=== PATIENT | male | born 1945 | race Caucasian/White ===

== ENCOUNTER 2019-09-15 09:57 | Outpatient (CLI) | payer OTHER, SELFPAY ==
--- NOTE | 2019-09-16 08:35 | ONC FU_ITS ---
Dr. Green Patient Follow-Up Note Patient: Vishal Boswell Unit #: [id number]: 1945 Dicatated By: Chivo Green M.D.Date of Visit:Sep 15, 2019 Onc Med Follow-up/Prog Note Chief Complaint: Bladder cancer. 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 He had presented with hematuria. A renal ultrasound on 07/07/11 showed a 2 cm mass in the bladder. The CT scan of the abdomen and pelvis on 07/26/11 showed a 3 cm mass rom the posterior aspect of the bladder. There was no associated lymphadenopathy. On 09/18/11 cystoscopy showed large nodular tumor in the mid trigone with continuous smaller papillary tumors greater than 5 cm. He underwent a transurethral resection of the bladder tumor. Pathology showed high-grade papillary carcinoma infiltrating the muscularis propria; clinical stage at least II. He was found to be a poor surgical candidate. He had a marginal performance status, his mobility was limited by severe COPD and significant osteoarthritis. He was first seen by Dr. Saavedra on 11/02/11. A CT of the chest, abdomen, and pelvis showed no evidence of distant metastatic disease. Bone scan on 11/22/11 showed a focus within the L1 vertebral body. A CT-guided biopsy on 11/23/11 confirmed metastatic non small cell cancer, consistent with transitional carcinoma of the bladder. The palliative chemotherapy with cisplatin and gemcitabine was initiated on 11/27/11, complicated with grade 4 thrombocytopenia without bleeding and grade 4 neutropenia. Just prior to cycle 2 he was admitted with acute non-ST elevation PR, treated with medical management alone. His further chemotherapy was switched to carboplatin AUC of 4 day 1 and gemcitabine 800 mg/m2 day 1 and 8 out of 3 week cycle, complicated with grade 2 thrombocytopenia with slow recovery. His platelet radha at 43. Cycle 6 was given on 04/08/12. Following that cycle of carboplatin and half dose of gemcitabine the patient developed multilobular pneumonia. He returned with recurrent hematuria. His bone scan on 08/05/13 showed no suspicious metastatic lesions, although he had multiple findings of degenerative disease. His CT 09/11/13 showed increased and new bladder lesions. TURBT on 10/06/13 showed large muscle invasive tumor at the trigone. He had additional multiple large papillary tumors scattered throughout the bladder. The tumors were fulgurated. The patient began on salvage radiation therapy with weekly carboplatin AUC 1.5 on 11/11/2013-12/19/13. He was able to receive 4 doses, last delivered on 12/02/2013, his platelet radha at 65,000, hemoglobin radha at 7.7 mg/dL, that recovered without transfusions. Follow up CT of the chest and abdomen on 01/27/2014 showed an increase in the bladder mass. He had no evidence of distant metastatic disease. His bone scan on 01/27/2014 remained negative for metastatic disease. CT 06/29/14 with irregular bladder wall, but no evidence of distant disease by CT and bone scan. CT of the chest, abdomen, and pelvis and restaging bone scan on 01/04/2015 showed no evidence of active disease. He continued observation/expectant management. His restaging CT scans of the chest, abdomen, and pelvis on 01/02/2017 showed bilateral iliac chain lymphadenopathy which had increased from the study in September. Also noted was significant enlargement of the soft tissue masses along the right iliac chain, the largest measuring 4.1 x 3.1 cm. There was additional adenopathy along the left iliac chain, the largest measuring 1.9 cm. He had further evaluation with PET/CT on 02/02/2017. Findings in the thorax were limited to 2 small right upper lobe pulmonary nodules, one measuring 6 mm and the other 5 mm, and neither were FDG avid. The abdomen and pelvis showed a large, confluent right presacral lymph node mass invading the right psoas muscle. It measured 5.6 x 4.2 x 6.6 cm with maximum SUV 20.7. A large, and left iliac lymph node was noted to abut the left psoas muscle measured 2 x 2 0.2 cm with maximum SUV 13.6. There was additional left presacral and right internal iliac adenopathy. The urinary bladder demonstrated expected excreted activity with a small posterior lateral left urinary diverticulum noted. He began second line systemic therapy with pembrolizumab, cycle 1 on 02/19/2017. He experienced some treatment related toxicity. He indicated that he was really sick and that he couldn't keep anything down for several days. His treatment was then put on hold while he underwent palliative radiation to the pelvis. His treatment was completed on 03/23/2017 to a total dose of 3120 cGy. He tolerated it well. He was then able to proceed with a second cycle of treatment on 03/27/2017. He was able to tolerate it better with a more aggressive anti-emetic regimen, and he then continued treatment at 3-week intervals. He completed cycle 6 on 06/19/2017. Restaging CT scans on 06/19/2017 showed no evidence of disease progression in the chest. Right upper lobe solid and groundglass nodules appeared unchanged. The abdomen/pelvis showed resolved left and decreased right iliac chain lymphadenopathy. There was no evidence of disease progression. He continued treatment with pembrolizumab. His cycle 7 was delayed due to flulike symptoms, but he was then able to continue his treatment at 3-week intervals. Restaging CT scans of the chest, abdomen, and pelvis on 09/26/2017 showed evidence of emphysema with stable right upper lobe pulmonary nodule measuring 6 mm. Areas of atelectasis and pleural thickening at the lung bases also appeared stable. Abdomen showed moderately well distended gallbladder with evidence of cholelithiasis but no evidence for acute cholecystitis. There was moderate fecal retention throughout the colon. There was only minimal residual soft tissue thickening along the right internal iliac chain, consistent with treated disease. The appearance was stable compared to the study from May. There was no evidence of disease progression. He continued treatment with pembrolizumab. He received cycle 13 on 12/11/2017. His medical illnesses include COPD, type II diabetes, coronary artery disease, peripheral arterial disease, GERD, degenerative arthritis, and gout. He has a history of previous stroke. He has smoked in the past, but he quit smoking 12 years ago. INTERIM HISTORY: His CT of the neck on 01/01/2018 showed an enlarged lymph node posterior to the right clavicle measuring 1.8 cm. It was new compared to the prior CT from 09/26/2017. There was no other adenopathy noted on that study. CT scans of the chest, abdomen, and pelvis on 01/02/2018 showed stable right upper lobe pulmonary nodule measuring 5 mm and is stable 13 mm right iliac chain soft tissue mass consistent with resolve/treated adenopathy. Overall there was no other evidence of disease progression. He conitinued treatment with pembrolizumab. As of 07/01/2018 he received cycle [address] scans of the chest, abdomen, and pelvis on 07/10/2018 showed no significant change in right middle lobe nodule and pleural-based densities in the lower lobes. There was no evidence of disease progression. He continued treatment with pembrolizumab at 3-week intervals. Restaging CT scans of the chest, abdomen, and pelvis on 12/25/2018 showed no evidence of new or progressed metastatic disease. He received cycle of 30 of pembrolizumab on 12/26/2018. At that point he was showing some further decline in performance status. As he was close to completing 2 years of treatment, we opted to stop the pembrolizumab and transition to observation/expectant management. His surveillance CT scans on 03/13/2019 showed stable right upper and right middle lobe pulmonary nodules and stable dependent changes at the lung bases. Overall there was no evidence for metastatic disease to the chest, abdomen, or pelvis. As of his follow-up visit on 06/12/2019 he had shown some improvement in his performance status after stopping treatment. He was recommended to continue on observation/expectant management. He is seen for a followup visit. He says he has been doing pretty well. His main complaint is that 2 weeks ago he had fallen out of his bathtub backwards, injuring his right shoulder and his back. X-rays, though, showed no evidence of fracture. The pain has been getting better. Aside from that his activity tolerance had improved somewhat, though still limited. His ECOG score is 2. He has had good appetite. His weight is up about 5 pounds. He has no fever or night sweats. He also complains, though, of generalized itching. He has not had an associated skin eruption. He had previously attributed the itching to gabapentin, but that apparently was not the cause. He has some shortness of breath, but he says his breathing is pretty good. He is mainly using oxygen just at night now. He does not complain of cough. He has just occasional chest pain. He currently has no GI complaints. His bowel and bladder function remain adequate. He has chronic neuropathy pain in his legs and feet. Medications: Aleve 220 mg - Take 1 Tablet Oral b.i.d. PRN, Aspirin 81 mg - Take 1 Tablet Oral daily, Benadryl Allergy 1 Tablet (of 25 mg) Oral b.i.d., Flonase 1 (50 mcg/act) Suspension Nasal daily, GlyBURIDE 5 mg - Take 1 Tablet Oral b.i.d., Lasix 1 (40 mg) Tablet Oral daily, Levothyroxine Sodium 1 (75 mcg) Tablet Oral daily, MetFORMIN HCl 1 (500 mg) Tablet Oral b.i.d., Metoprolol Tartrate 0.5 (100 mg) Tablet Oral b.i.d., Multivitamins 1 Capsule Oral daily, Omeprazole 1 (20 mg) Capsule Delayed Release Oral daily, Prochlorperazine Maleate 1 (10 mg) Tablet Oral q 4 hours PRN, Proventil 2 puff(s) (of 90 mcg/act) Aerosol, solution Inhalation PRN, Rosuvastatin Calcium 1 (5 mg) Tablet Oral daily, SAXagliptin HCl 1 Tablet (of 2.5 mg) Oral daily, Senna S 2 (8.6-50 mg) Tablet Oral b.i.d. PRN, Zofran 1 (8 mg) Tablet Oral q 4 hours PRN Allergies: Sulfa Review of Systems: Constitutional - He still has limited activity, but he is up and around at home. His appetite is good. His weight is up 5 lbs. No fever or night sweats. ECOG score is 2, ENMT - He has a runny nose. No mouth sores. No sore throat or difficulty swallowing, Hematologic/Lymphatic - No abnormal bruising or bleeding, Respiratory - He has some shortness of breath, but his breathing is pretty good. He is on oxygen at night. No cough. No pleuritic pain or hemoptysis, Cardiovascular - He occasionally has chest pain. No palpitations, Gastrointestinal - No nausea or vomiting. His acid reflux is managed adequately with Prilosec. He has constipation, but bowel function has been adequate with a laxative pill. He has not been aware of any blood in the stool or black stools, Genitourinary (M) - No dysuria or hematuria. No urinary frequency. No urgency or incontinence, Musculoskeletal - He has had pain in his right shoulder and in his back, but it is getting better. He has chronic pain in his legs, Integumentary - No skin complications, Neurologic - He has just very occasional headaches. No dizziness. He has numbness and tingling in his feet and hands, and he has neuropathy pain in his legs, Psychiatric - No anxiety or depression. He has difficulty sleeping. Vital Signs: Performed on Sep 15, 2019 10:01 Height - 71.00 in Weight - 200.2 lbs (HIGH) BSA - 2.11 sq.m BMI - 27.92 Temperature - 98.8 F Pulse - 67 /min Respiration - 24 /min BP - 117/62 mm(hg) O2 Sat - 93 % (LOW) Pain - 5 Physical Examination: Constitutional - He appears somewhat weak generally, Eyes - Sclerae nonicteric. Conjunctivae clear, ENMT - No lesions noted in the oral cavity, Hematologic/Lymphatic - No cervical, clavicular, or axillary adenopathy, Respiratory - Lungs sound clear with diminished air movement bilaterally, Cardiovascular - Heart tones are distant. The rhythm appears regular. There is no murmur, gallop, or rub noted, Abdomen - Soft. Liver and spleen are not enlarged. There is no abdominal mass or ascites noted. There is no inguinal adenopathy noted, Extremities - Slight edema, Neurologic - No focal neurologic deficits noted. Impression: 1. Patient with high-grade papillary carcinoma of the bladder, stage IV, initially diagnosed in August 2011. 2. His initial treatment included TURBT followed by 6 cycles of [place]/gemcitabine chemotherapy, complicated by significant thrombocytopenia and neutropenia. Restaging CT after 6 cycles of treatment in March 2012 showed no evidence of active disease. 3. CT showed local recurrence in the bladder only. TURBT was performed on 10/06/13. He received palliative concurrent chemoradiation with Carboplatin AUC 1.5, completed on 12/19/13. In the settings of recurrent hematuria, CT on 12/13/2015 revealed new retroperitoneal and pericaval lymphadenopathy. 4. He has known coronary disease, and his treatment was further complicated by non-ST elevation myocardial infarction just prior to his second cycle of chemotherapy. His other medical illnesses include: 5. COPD. 6. Type II diabetes. 7. Peripheral arterial disease. 8. History of prior stroke. 9. GERD. 10. Degenerative arthritis. 11. Gout. He has had marginal performance status following his chemotherapy and radiation. He unfortunately developed recurrence in the form of presacral and iliac lymphadenopathy bilaterally. On the right there is associated invasion of the right psoas muscle, which was symptomatic. He began second line systemic therapy with pembrolizumab, cycle 1 on 02/19/2017. He did have some acute toxicity, mainly nausea/vomiting, lasting several days. His treatment was then put on hold while he underwent palliative radiation to the pelvis. He completed treatment on 03/23/2017 to a total dose of 3120 cGy. He has had some symptomatic improvement with the radiation. He continued, though, to have very marginal performance status. He was able to proceed with cycle 2 of pembrolizumab on 03/27/2017. He tolerated it better with more aggressive anti-emetic therapy. He has since then continued treatment at 3-week intervals. As of 12/11/2017 he had completed his 13th cycle. Up to that point there had been no obvious disease progression. His CT scans from 01/02/2018 did show a new lymph node behind the right clavicle measuring 1.8 cm. The significance of that finding is uncertain. There was no other evidence of disease progression. He continued treatment with pembrolizumab, and during subsequent follow-up he had gradual improvement in his clinical status. His restaging CT scans on 07/10/2018 showed no evidence of disease progression. During subsequent follow-up, his clinical status had been fairly stable, though he continued to have very limited activity tolerance. His restaging CT scans on 12/25/2018 showed no evidence of disease progression. He then continued with cycle 30 of pembrolizumab on 12/26/2018, though he was experiencing some further decline in his performance status. He was close to completing 2 years of treatment, and at that point we opted to stop the pembrolizumab and transition to observation/expectant management. His surveillance CT scans from 03/13/2019 showed no obvious recurrence/progression of the bladder cancer. He had shown some improvement in his performance status after stopping the pembrolizumab. Since then his clinical status has remained stable, though he continues to have fairly limited activity and he also continues to complain of generalized itching. A specific cause for that has not been determined. Plan: I will obtain results of the lab studies which were [facility]. He will be scheduled for surveillance CT scans. Assuming there is no evidence of disease progression, I will just plan to see him again in 6 months. Signed By: Chivo Green M.D. <<Signature on File>>
== END 2019-09-15 09:58 | disposition home or self-care (01) ==
LOC: ONCMED 09:58
PROVIDERS: Family Provider Emergency Medicine Emergency Medical Services; PCP Emergency Medicine Emergency Medical Services; Visit Provider Internal Medicine Medical Oncology
DX: Z08 Encounter for follow-up examination after completed treatment for malignant neoplasm (principal); Z85.51 Personal history of malignant neoplasm of bladder; L29.9 Pruritus, unspecified; M19.90 Unspecified osteoarthritis, unspecified site; J43.9 Emphysema, unspecified; E11.51 Type 2 diabetes mellitus with diabetic peripheral angiopathy without gangrene; I25.10 Atherosclerotic heart disease of native coronary artery without angina pectoris; K21.9 Gastro-esophageal reflux disease without esophagitis; M10.9 Gout, unspecified; R91.8 Other nonspecific abnormal finding of lung field; I25.2 Old myocardial infarction; Z91.81 History of falling; Z79.899 Other long term (current) drug therapy; Z79.82 Long term (current) use of aspirin; Z79.84 Long term (current) use of oral hypoglycemic drugs; Z87.01 Personal history of pneumonia (recurrent); Z92.21 Personal history of antineoplastic chemotherapy; Z86.73 Personal history of transient ischemic attack (TIA), and cerebral infarction without residual deficits; Z87.891 Personal history of nicotine dependence; Z92.3 Personal history of irradiation
CPT/HCPCS: 99214

== ENCOUNTER 2019-09-24 11:52 | Outpatient (CLI) | payer OTHER, SELFPAY ==
--- NOTE | 2019-09-24 12:00 | CT_ITS ---
WS: [id number] CT CHEST AND ABDOMEN TECHNIQUE: Contrast-enhanced CT of the chest and abdomen with coronal and sagittal reformatted images . CLINICAL INFORMATION: BLADDER CANCER COMPARISON: March 13, 2019 DLP: [id number] scans at [facility] use at least one of these dose optimization techniques: automat ed exposure control; mA and/or kV adjustment per patient size (includes targeted exams where dose is matched to clinical indication); or iterative reconstruction. CT CHEST: Moderate chronic emphysematous changes. A few small subcentimeter nodules right upper and right middl e lobes the largest measuring 5 mm in the right upper lobe. No mediastinal or hilar lymphadenopathy. No acute pulmonary infiltrates. Subsegmental atelectasis in the lung bases. Thoracic aortic calcific ation. Coronary calcification. Small esophageal hiatal hernia. CT ABDOMEN: Cholelithiasis. Normal portal vein and splenic vein. Normal pancreas. Adrenal glands are normal. Sple roopa granulomas. No renal parenchymal enhancement. No hydronephrosis. Normal caliber abdominal aorta. No abdominal lymphadenopathy. Diverticulosis. No evidence of acute diverticulitis. No evidence of sma ll or large bowel obstruction. Left bladder diverticulum measuring 13 mm near the left UVJ. This is u nchanged. No pelvic or iliac chain lymphadenopathy. Moderate thoracic kyphosis. CT/CT chest abdomen w con* IMPRESSION: 1. No evidence of progressed metastatic disease in the chest abdomen or pelvis . 2. Stable right upper lobe noncalcified pulmonary nodule measuring 5 mm. 3. No adenopathy in the abdomen or pelvis. 4. Dense cholelithiasis is unchanged in appearance. 5. Small esophageal hiatal hernia. 6. Small bladder diverticulum near the left UVJ measuring 13 mm is unchanged. 7. No pelvic or inguinal lymphadenopathy.
[2019-09-24] MEDS: iohexol 300 mg/mL 50 mL Btl PO (14:01)
[2019-09-24] MEDS: iohexol 300 mg/mL 100 mL Btl IV (14:03)
== END 2019-09-24 11:53 | disposition home or self-care (01) ==
PROVIDERS: Family Provider Emergency Medicine Emergency Medical Services; PCP Emergency Medicine Emergency Medical Services; Visit Provider Internal Medicine Medical Oncology
DX: C67.9 Malignant neoplasm of bladder, unspecified (principal); K80.20 Calculus of gallbladder without cholecystitis without obstruction; K44.9 Diaphragmatic hernia without obstruction or gangrene; N32.3 Diverticulum of bladder
CPT/HCPCS: 71260; 74160; Q9967

== ENCOUNTER 2020-01-12 14:45 | Outpatient (CLI) | payer OTHER, SELFPAY ==
[2020-01-12 15:23] LABS: Add Urine Microscopic? NO
[2020-01-12 16:01] LABS: Bilirubin Urine Neg (NEGATIVE); Blood Urine Neg (Negative); Glucose Urine UA Norm (Normal); Ketones Urine Negative (Negative); Leukocyte Esterase Urine Negative (Negative); Nitrate Urine Negative (Negative); Protein Urine Neg (Negative); Specific Gravity, Urine 1.015 (1.005-1.030); Urine Appearance Clear (CLEAR); Urine Color Yellow (Yellow); Urobilinogen Urine Neg (Negative); pH Urine 5 (5-7)
== END 2020-01-12 14:46 | disposition home or self-care (01) ==
LOC: ONCMED 14:47
PROVIDERS: PCP Emergency Medicine Emergency Medical Services; Visit Provider Internal Medicine Medical Oncology
DX: R31.9 Hematuria, unspecified (principal); C67.0 Malignant neoplasm of trigone of bladder
CPT/HCPCS: 81003

== ENCOUNTER 2020-03-23 10:13 | Outpatient (CLI) | payer OTHER, SELFPAY ==
[2020-03-23 10:46] LABS: Basophils % 0.7 %; Eosinophils # 0.2 10^3/uL (0.0-0.8); Eosinophils % 5.2 %; Lymphocytes % 22.2 %; Mean Corpuscular HGB Conc 30.2 g/dL (30.0-36.0); Mean Corpuscular Volume 102.6 fL (80-94); Mean Platelet Volume 9.8 fL (7.4-10.4); Monocytes # 0.5 10^3/uL (0.2-0.9); Neutrophils # 2.71 10^3/uL (1.8-7.7); Neutrophils % 60.7 %; Nucleated Red Blood Cells % 0 %; Platelet Count 122 10^3/cmm (130-400); Red Blood Count 4.19 10^6/uL (4.1-5.3); Red Cell Distribution Width 13.6 % (12.1-15.1); White Blood Count 4.5 10^3/uL (4.0-10.0)
[2020-03-23 11:14] LABS: Alanine Aminotransferase 17 U/L (0-41); Albumin Level 4.2 g/dL (3.5-5.2); Alkaline Phosphatase 54 IU/L (40-130); Anion Gap 12.5 (5-19); Aspartate Amino Transferase 18 U/L (0-40); Blood Urea Nitrogen 24 mg/dL (8-23); Calcium 9.8 mg/dL (8.5-10.5); Carbon Dioxide 35 mmol/L (22-29); Chloride 99 mmol/L (98-107); Glucose 127 mg/dL (65-115); Osmolality Calculated 292 mOsm/kg (285-295); Potassium 4.5 mmol/L (3.5-5.1); Sodium 142 mmol/L (136-145); Thyroid Stimulating Hormone 2.39 uIU/mL (0.27-4.20); Total Bilirubin 0.2 mg/dL (0.15-1.2); Total Protein 7.2 g/dL (6.6-8.7)
== END 2020-03-23 10:14 | disposition home or self-care (01) ==
PROVIDERS: PCP Emergency Medicine Emergency Medical Services; Visit Provider Internal Medicine Medical Oncology
DX: C67.0 Malignant neoplasm of trigone of bladder (principal)
CPT/HCPCS: 36415; 80053; 84443; 85025

== ENCOUNTER 2020-03-24 06:02 | Outpatient (CLI) | payer OTHER, SELFPAY | END 2020-03-24 06:03 | disposition home or self-care (01) | LOC: ONCMED 06:03 | PROVIDERS: PCP Emergency Medicine Emergency Medical Services; Visit Provider Internal Medicine Medical Oncology | DX: Z45.2 Encounter for adjustment and management of vascular access device (principal) ==

== ENCOUNTER 2020-03-24 13:08 | Outpatient (CLI) | payer OTHER, SELFPAY | END 2020-03-24 13:09 | disposition home or self-care (01) | LOC: WOUND 13:12 | PROVIDERS: PCP Emergency Medicine Emergency Medical Services; Visit Provider Emergency Medicine | DX: L98.8 Other specified disorders of the skin and subcutaneous tissue (principal) | CPT/HCPCS: G0463 ==

== ENCOUNTER 2020-10-07 11:57 | Outpatient (CLI) | payer OTHER, SELFPAY ==
--- NOTE | 2020-10-07 12:11 | CT_ITS ---
WS: [id number] CT scan of the chest With IV contrast, CT scan of the abdomen and pelvis with IV contrast and oral contrast. Additional two-dimensional coronal and sagittal reconstruction was performed. 10/08/19 Clinical Data: BLADDER CANCER, MALIGNANT NEOPLASM OF LYMPH NODES HEAD, NECK Comparison: CT chest abdomen, 09/24/2019 DLP: 2433.[address] scans at [facility] use at least one of these dose optimization techniques: automat ed exposure control; mA and/or kV adjustment per patient size (includes targeted exams where dose is matched to clinical indication); or iterative reconstruction. Findings: Chest: No masses or effusions are seen. There is a right upper lobe nodule unchanged. The heart size is normal with no pericardial effusion. There is coronary artery calcification. There is calcification in the wall of the thoracic aorta. No pneumonia or pneumothorax is seen. There is bi basilar atelectasis and a pleural-based nodule on the posterior left inferior pleura unchanged. The pulmonary arterial system and thoracic aorta demonstrate no abnormalities or dilatations. The tra joselyn bifurcates into the bronchi. There is a small hiatal hernia There is no axillary or significant mediastinal adenopathy. The bones of the thorax showing osteoarth ritis of the thoracic vertebral bodies. Abdomen/pelvis: The liver, spleen, adrenal glands and pancreas are normal. There are gallstones unchanged. The kidneys show equal bilateral contrast excretion with a small left renal cortical cyst. No hydrone phrosis, mass or renal calculi are noted.. The abdominal aorta is normal in size with calcification and minimal mural thrombus present.. No appendicitis or diverticulitis is seen. Oral contrast is in the stomach and small bowel and there is no bowel dilatation. No abscess, ascites, mass, obstruction or free air is seen. There are numerou s retroperitoneal lymph nodes which are not enlarged and they have not changed.. The bladder shows a posterior left diverticulum unchanged.. No inguinal hernia is seen. The bones of the lower thorax, lumbar spine, pelvis, and hips and a straight osteoarthritis of the ubaldo mbar vertebral bodies with disc narrowing at L5-S1.. CT/CT chest abd pel w con* Impression: 1. Negative for acute intra-abdominal or pelvic abnormalities. 2. Unchanged right middle lobe nodule, cholelithiasis, small hiatal hernia and small bladder diverticulum.
[2020-10-07] MEDS: iohexol 300 mg/mL 50 mL Btl PO (14:24)
[2020-10-07] MEDS: iohexol 300 mg/mL 100 mL Btl IV (14:24)
== END 2020-10-07 11:58 | disposition home or self-care (01) ==
PROVIDERS: PCP Emergency Medicine Emergency Medical Services; Visit Provider Internal Medicine Medical Oncology
DX: C67.9 Malignant neoplasm of bladder, unspecified (principal); C77.8 Secondary and unspecified malignant neoplasm of lymph nodes of multiple regions; K80.20 Calculus of gallbladder without cholecystitis without obstruction; K44.9 Diaphragmatic hernia without obstruction or gangrene; N32.3 Diverticulum of bladder; R91.1 Solitary pulmonary nodule
CPT/HCPCS: 71260; 74177; Q9967

== ENCOUNTER 2020-10-14 08:54 | Outpatient (CLI) | payer OTHER, SELFPAY ==
--- NOTE | 2020-10-14 08:58 | MR_ITS ---
WS: [id number] MRI BRAIN WITHOUT CONTRAST HISTORY: MEMORY PROBLEMS COMPARISON: 04/26/2017 TECHNIQUE: Diffusion imaging, multiplanar T1, T2 and FLAIR imaging obtained. No evidence for acute infarct or hemorrhage. Richardson-white matter differentiation is normal. No prior infarcts. There is mild atrophy with mild chronic microvascular ischemic disease. Small retr ocerebellar arachnoid cyst. No hemorrhage. Ventricles and extra-axial spaces are normal. No inferior displacement of cerebellar tonsils. The sella turcica and pituitary gland are unremarkabl e. Dural venous sinuses and [place] of [place] demonstrate no abnormality on this unenhanced studies. Paranasal sinuses: Clear. Mastoid air cells: Normal. Calvarium and scalp: Intact. Moderate-sized disc osteophyte encroachment upon the cervical cord at C2-3 greatest to the LEFT of mi dline. MR/MR head wo con* [id number] IMPRESSION: 1. No acute infarct or mass. 2. Mild atrophy and chronic ischemic disease. 3. Small retrocerebellar arachnoid cyst. 4. Moderate-sized disc osteophyte encroachment upon the LEFT cervical cord at C2-3.
== END 2020-10-14 08:55 | disposition home or self-care (01) ==
PROVIDERS: PCP Emergency Medicine Emergency Medical Services; Visit Provider Emergency Medicine Emergency Medical Services
DX: R41.3 Other amnesia (principal); M25.78 Osteophyte, vertebrae; G93.0 Cerebral cysts; I67.82 Cerebral ischemia; G31.9 Degenerative disease of nervous system, unspecified
CPT/HCPCS: 70551

== ENCOUNTER 2020-10-20 08:50 | Outpatient (CLI) | payer OTHER, SELFPAY ==
--- NOTE | 2020-10-20 12:37 | ONC FU_ITS ---
Dr. Green Patient Follow-Up Note Patient: Vishal Boswell Unit #: [id number]: 1945 Dicatated By: Chivo Green M.D.Date of Visit:Oct 20, 2020 Onc Med Follow-up/Prog Note Chief Complaint: Bladder cancer. 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 He had presented with hematuria. A renal ultrasound on 07/07/11 showed a 2 cm mass in the bladder. The CT scan of the abdomen and pelvis on 07/26/11 showed a 3 cm mass rom the posterior aspect of the bladder. There was no associated lymphadenopathy. On 09/18/11 cystoscopy showed large nodular tumor in the mid trigone with continuous smaller papillary tumors greater than 5 cm. He underwent a transurethral resection of the bladder tumor. Pathology showed high-grade papillary carcinoma infiltrating the muscularis propria; clinical stage at least II. He was found to be a poor surgical candidate. He had a marginal performance status, his mobility was limited by severe COPD and significant osteoarthritis. He was first seen by Dr. Saavedra on 11/02/11. A CT of the chest, abdomen, and pelvis showed no evidence of distant metastatic disease. Bone scan on 11/22/11 showed a focus within the L1 vertebral body. A CT-guided biopsy on 11/23/11 confirmed metastatic non small cell cancer, consistent with transitional carcinoma of the bladder. The palliative chemotherapy with cisplatin and gemcitabine was initiated on 11/27/11, complicated with grade 4 thrombocytopenia without bleeding and grade 4 neutropenia. Just prior to cycle 2 he was admitted with acute non-ST elevation OK, treated with medical management alone. His further chemotherapy was switched to carboplatin AUC of 4 day 1 and gemcitabine 800 mg/m2 day 1 and 8 out of 3 week cycle, complicated with grade 2 thrombocytopenia with slow recovery. His platelet radha at 43. Cycle 6 was given on 04/08/12. Following that cycle of carboplatin and half dose of gemcitabine the patient developed multilobular pneumonia. He returned with recurrent hematuria. His bone scan on 08/05/13 showed no suspicious metastatic lesions, although he had multiple findings of degenerative disease. His CT 09/11/13 showed increased and new bladder lesions. TURBT on 10/06/13 showed large muscle invasive tumor at the trigone. He had additional multiple large papillary tumors scattered throughout the bladder. The tumors were fulgurated. The patient began on salvage radiation therapy with weekly carboplatin AUC 1.5 on 11/11/2013-12/19/13. He was able to receive 4 doses, last delivered on 12/02/2013, his platelet radha at 65,000, hemoglobin radha at 7.7 mg/dL, that recovered without transfusions. Follow up CT of the chest and abdomen on 01/27/2014 showed an increase in the bladder mass. He had no evidence of distant metastatic disease. His bone scan on 01/27/2014 remained negative for metastatic disease. He was then followed expectantly. His restaging CT scans of the chest, abdomen, and pelvis on 01/02/2017 showed bilateral iliac chain lymphadenopathy which had increased from the study in September. Also noted was significant enlargement of the soft tissue masses along the right iliac chain, the largest measuring 4.1 x 3.1 cm. There was additional adenopathy along the left iliac chain, the largest measuring 1.9 cm. He had further evaluation with PET/CT on 02/02/2017. Findings in the thorax were limited to 2 small right upper lobe pulmonary nodules, one measuring 6 mm and the other 5 mm, and neither were FDG avid. The abdomen and pelvis showed a large, confluent right presacral lymph node mass invading the right psoas muscle. It measured 5.6 x 4.2 x 6.6 cm with maximum SUV 20.7. A large, and left iliac lymph node was noted to abut the left psoas muscle measured 2 x 2 0.2 cm with maximum SUV 13.6. There was additional left presacral and right internal iliac adenopathy. The urinary bladder demonstrated expected excreted activity with a small posterior lateral left urinary diverticulum noted. He began second line systemic therapy with pembrolizumab, cycle 1 on 02/19/2017. He experienced some treatment related toxicity. He indicated that he was really sick and that he couldn't keep anything down for several days. His treatment was then put on hold while he underwent palliative radiation to the pelvis. His treatment was completed on 03/23/2017 to a total dose of 3120 cGy. He tolerated it well. He was then able to proceed with a second cycle of treatment on 03/27/2017. He was able to tolerate it better with a more aggressive anti-emetic regimen, and he then continued treatment at 3-week intervals. Restaging CT scans of the chest, abdomen, and pelvis on 12/25/2018 showed no evidence of new or progressed metastatic disease. He received cycle of 30 of pembrolizumab on 12/26/2018. At that point he was showing some further decline in performance status. As he was close to completing 2 years of treatment, I opted to stop the pembrolizumab and transition to observation/expectant management. His surveillance CT scans on 03/13/2019 showed stable right upper and right middle lobe pulmonary nodules and stable dependent changes at the lung bases. Overall there was no evidence for metastatic disease to the chest, abdomen, or pelvis. As of his follow-up visit on 06/12/2019 he had shown some improvement in his performance status after stopping treatment. He was recommended to continue on observation/expectant management. As of his follow-up visit on 09/15/2019 he was doing well clinically with no evidence of recurrence of the bladder cancer. His further follow-up here was interrupted due to the COVID-19 pandemic restrictions. However, he did continue his follow-up through the [place]. His medical illnesses include COPD, type II diabetes, coronary artery disease, peripheral arterial disease, GERD, degenerative arthritis, and gout. He has a history of previous stroke. He has smoked in the past, but he quit smoking 12 years ago. INTERIM HISTORY: His surveillance CT scans on 10/07/2020 showed unchanged right upper lobe pulmonary nodule. A pleural-based nodule in the posterior left inferior pleura appeared stable. There were no other pulmonary nodules and there was no axillary or significant mediastinal adenopathy. There was no evidence of recurrent or metastatic disease in the abdomen/pelvis. He is seen for a followup visit. He has been feeling pretty good generally. He says that his had complained that he has been sleeping a lot and forgetting things. As such, his recent evaluation also included a head MRI which also showed no evidence of metastatic disease. He still has limited activity, but he does quite a bit of walking. His ECOG score is 2. His appetite is good. He has no fever or night sweats. He has sinus drainage all the time, which is chronic. He has just occasional cough associated with chest congestion. His breathing has been okay on oxygen. He does not complain of chest pain. He colonel he has no GI complaints. Bowel function has been adequate with stool softener/laxative regimen. His bladder function has been okay. He does have some urinary frequency and nocturia, and he recently had treatment for a bladder infection. He has pain in all his joints and is neck also bothers him. He occasionally has back pain. He says he can live with it. He has occasional sinus headache. He has numbness/tingling in his feet. Medications: Aleve 220 mg - Take 1 Tablet Oral b.i.d. PRN, Aspirin 81 mg - Take 1 Tablet Oral daily, Benadryl Allergy 1 Tablet (of 25 mg) Oral b.i.d., Flonase 1 (50 mcg/act) Suspension Nasal daily, GlyBURIDE 5 mg - Take 1 Tablet Oral b.i.d., Lasix 1 (40 mg) Tablet Oral daily, Levothyroxine Sodium 1 (75 mcg) Tablet Oral daily, MetFORMIN HCl 1 (500 mg) Tablet Oral b.i.d., Metoprolol Tartrate 0.5 (100 mg) Tablet Oral b.i.d., Multivitamins 1 Capsule Oral daily, Omeprazole 1 (20 mg) Capsule Delayed Release Oral daily, Prochlorperazine Maleate 1 (10 mg) Tablet Oral q 4 hours PRN, Proventil 2 puff(s) (of 90 mcg/act) Aerosol, solution Inhalation PRN, Rosuvastatin Calcium 1 (5 mg) Tablet Oral daily, SAXagliptin HCl 1 Tablet (of 2.5 mg) Oral daily, Senna S 2 (8.6-50 mg) Tablet Oral b.i.d. PRN, Zofran 1 (8 mg) Tablet Oral q 4 hours PRN Allergies: Sulfa Vital Signs: Performed on Oct 20, 2020 09:09 Height - 71.00 in Weight - 201.4 lbs (HIGH) BSA - 2.12 sq.m BMI - 28.09 Temperature - 97.5 F (LOW) Pulse - 96 /min Respiration - 20 /min BP - 139/71 mm(hg) O2 Sat - 95 % (LOW) Pain - 0 Fatigue - 0 Physical Examination: Constitutional - He looks pretty good generally, Eyes - Sclerae nonicteric. Conjunctivae clear, ENMT - No lesions noted in the oral cavity, Hematologic/Lymphatic - No cervical, clavicular, or axillary adenopathy, Respiratory - Lungs show some decrease in air movement bilaterally. There is some slight upper airway congestion, Cardiovascular - Heart tones are distant. The rhythm appears regular. There is no murmur, gallop, or rub noted, Abdomen - Mildly distended but soft. Liver and spleen are not enlarged. There is no abdominal mass or ascites noted. There is no inguinal adenopathy noted, Extremities - Mild edema, Neurologic - No focal neurologic deficits noted. Lab/Imaging: Test performed on Sep 22, 2020 08:03 TSH 1.993 uU/mL Cholesterol, Total 179 mg/dL Glucose 110 mg/dL BUN 30 mg/dL HDL Cholesterol 31.9 mg/dL Creatinine 1.00 mg/dL LDL Cholesterol 106.9 mg/dL Cr Clearance (Est) 81.98 mL/min Triglycerides 201 mg/dL Sodium 142 mmol/L Potassium 4.0 mmol/L Chloride 94 mmol/L CO2 38 mmol/L Calcium 9.5 mg/dL Protein, Total 7.4 g/dL Albumin 4.2 g/dL Bilirubin, Total 0.4 mg/dL Alkaline Phosphatase 52 IU/L AST (SGOT) 18 IU/L ALT (SGPT) 15 IU/L HCT 45.5 % Hemoglobin A1C 5.9 % HGB 13.8 g/dL Platelet Count 142 10^9/L PSA 0.24 ng/mL Problem List: 1. High-grade papillary carcinoma of the bladder, stage IV, initially diagnosed in August 2011. 2. COPD. 3. Type II diabetes. 4. Coronary artery disease. 5. Peripheral arterial disease. 6. History of prior stroke. 7. GERD. 8. Degenerative arthritis. 9. Gout. Problems Addressed with this Encounter and Plan: Patient with high-grade papillary carcinoma of the bladder, stage IV, initially diagnosed in August 2011. His initial treatment included TURBT followed by 6 cycles of [place]/gemcitabine chemotherapy, complicated by significant thrombocytopenia and neutropenia. Restaging CT after 6 cycles of treatment in March 2012 showed no evidence of active disease. TURBT was performed on 10/06/13. CT showed local recurrence in the bladder only. He received palliative concurrent chemoradiation with carboplatin AUC 1.5, completed on 12/19/13. In the settings of recurrent hematuria, CT on 12/13/2015 revealed new retroperitoneal and pericaval lymphadenopathy. He began 2nd line systemic therapy with pembrolizumab, cycle 1 on 02/19/2017. He experienced some acute toxicity, mainly nausea/vomiting, lasting several days. His treatment was then put on hold while he underwent palliative radiation to the pelvis. He completed treatment on 03/23/2017 to a total dose of 3120 cGy. He had some symptomatic improvement with the radiation. He continued, though, to have very marginal performance status. He was able to proceed with cycle 2 of pembrolizumab on 03/27/2017. He tolerated it better with more aggressive anti-emetic therapy. He then continued treatment at 3-week intervals. During subsequent follow-up, his clinical status had been fairly stable, though he continued to have very limited activity tolerance. His restaging CT scans on 12/25/2018 showed no evidence of disease progression. He continued with cycle 30 of pembrolizumab on 12/26/2018, though he was experiencing some further decline in his performance status. As he was close to completing 2 years of treatment, I opted to stop the pembrolizumab and transition to observation/expectant management. His surveillance CT scans from 03/13/2019 showed no obvious recurrence/progression of the bladder cancer. During subsequent follow-up he remained stable clinically. As of his visit on 09/15/2019 there was no obvious progression of the bladder cancer. His further follow-up here was interrupted due to restrictions from the COVID-19 virus pandemic. [facility] At this point he continues to have limited activity tolerance, but his overall clinical status appears stable. His restaging CT scan showed no evidence of recurrence/progression of the bladder cancer. He remains on observation/expectant management. I will see him again in 6 months. Signed By: Chivo Green M.D. <<Signature on File>>
== END 2020-10-20 08:51 | disposition home or self-care (01) ==
LOC: ONCMED 08:53
PROVIDERS: PCP Emergency Medicine Emergency Medical Services; Visit Provider Internal Medicine Medical Oncology
DX: C67.0 Malignant neoplasm of trigone of bladder (principal); C79.51 Secondary malignant neoplasm of bone; C77.8 Secondary and unspecified malignant neoplasm of lymph nodes of multiple regions; D50.9 Iron deficiency anemia, unspecified; J44.9 Chronic obstructive pulmonary disease, unspecified; E11.59 Type 2 diabetes mellitus with other circulatory complications; I25.10 Atherosclerotic heart disease of native coronary artery without angina pectoris; I73.9 Peripheral vascular disease, unspecified; K21.9 Gastro-esophageal reflux disease without esophagitis; M10.9 Gout, unspecified; Z92.3 Personal history of irradiation; Z92.21 Personal history of antineoplastic chemotherapy; Z79.899 Other long term (current) drug therapy
CPT/HCPCS: 99214

== ENCOUNTER 2021-01-06 10:33 | Emergency (ER) | payer OTHER, SELFPAY ==
[2021-01-06 10:39] VITALS: BP 137/77; PULSE 88; RESP 20; TEMP 36.4; O2SAT 92; BMI 29.2
[2021-01-06 10:46] VITALS: BP 130/86; PULSE 84; RESP 18; O2SAT 94
--- NOTE | 2021-01-06 10:50 | USCV_ITS ---
Vishal Boswell Age: 75 Gender: M : 1945 Exam Date: 01/06/2021 11:18 Ordering Phys: Jaswinder Thurston Technologist: Patito Torres Exam Location: [facility] [place] Indication: SWELLING, PAIN HISTORY: Lower extremity swelling. PROCEDURES: Venous duplex imaging was performed in only the left lower extremity. The following venous structures were evaluated: common femoral vein, profunda vein, proximal portion of the greater saphenous vein, superficial femoral vein, and the popliteal vein. In addition, the posterior tibial and peroneal trunk were evaluated. FINDINGS: Normal 2-D Doppler and augmentation and compressibility throughout the lower extremity venous structures. Additional imaging through the proximal calf veins also reveals no thrombus. Limited evaluation of the greater saphenous vein is patent with no thrombus.. CONCLUSIONS No evidence of left lower extremity DVT. Satya Lackey MD (Electronically Signed) Final Date: 06 January 2021 12:18 S
--- NOTE | 2021-01-06 10:53 | W.ED.EXTPRO ---
HPI - Extremity Problem General: Chief complaint: Extremity Problem,Nontraumatic Stated complaint: POSS BLOOD CLOT IN R LEG Time Seen by Provider: 01/06/21 10:47 History of Present Illness: HPI Narrative: [facility] extremity [facility]ulitis open wounds. Those wounds have healed up. But leg is swelled more became more red and now is painful concern is for DVT. MD Complaint: extremity swelling Onset (ago): day(s) Pain Consistency: constant Location: right and lower extremity Severity scale (1-10): 5 Quality: aching Exacerbating factors: range of motion and weight bearing Associated symptoms: Reports no associated symptoms; Deny chest pain, fever(s) or rash Review of Systems Const: Denies: fever(s), chills or body aches Eyes: Denies: change in vision or blurry vision ENMT: Denies: throat pain or nasal congestion Card: Denies: chest pain or dyspnea on exertion Resp: Denies: dyspnea, productive cough or non-productive cough GI: Denies: abdominal pain, nausea or vomiting : Denies: difficulty urinating Musc: Reports: extremity pain (Left lower extremity pain and swelling redness x2 days) Skin/Breast: Denies: rash Neuro: Denies: headache(s) Psych: Denies: anxiety or depression Macario/Lymph: Denies: easy bruising [facility] ED PFSH: Medical History (Updated 01/06/21 @ 11:20 by SALAZAR Yañez) COPD (chronic obstructive pulmonary disease) Diabetes mellitus Neuropathy Family History Other Cancer Diabetes Social History Smoking and tobacco status: former smoker Alcohol intake: never Household members: spouse Marital status: Current occupational status: retired Physical Exam Const: COMMON NORMALS: no acute distress, average body habitus and patient oriented x3 HENMT: COMMON NORMALS: normocephalic HEAD & SCALP: normal to inspection and normocephalic FACE & SINUS: normal facial exam Eye: COMMON NORMALS: conjunctivae normal GENERAL EYE: appearance normal, both eyes and all related structures CONJUNCTIVA: Yes conjunctivae normal Neck/C-Spine: COMMON NORMALS: no JVD Chest: COMMONS NORMALS: normal inspection of the chest Resp: COMMON NORMALS: normal respiratory effort and clear to auscultation bilaterally AUSCULTATION: clear to auscultation bilaterally Cardio: COMMON NORMALS: no JVD, regular rate and regular rhythm RATE: regular rate RHYTHM: regular rhythm GI: COMMON NORMALS: Normal to inspection, nondistended, normoactive bowel sounds present Extremity: COMMON NORMALS: full ROM LEFT LOWER EXTREMITY: Yes lower leg (Redness from mid escobar down, positive Homans, tenderness.) Left lower leg: Yes neurovascular exam (Intact) Neuro: COMMON NORMALS: patient oriented x3 Course Vital Signs: Vital signs: Vital Signs Temperature 97.5 F L 01/06/21 10:39 Pulse Rate 87 01/06/21 11:43 Respiratory Rate 15 01/06/21 11:43 Blood Pressure 129/77 01/06/21 11:43 Pulse Oximetry 94 01/06/21 11:43 MDM - Extremity (Nontraumatic) MDM Narrative: Medical decision making narrative: Patient sent over by the [facility] for DVT exam DVT exam was negative via ultrasound. Appears that patient continues to have cellulitis which she has been on an antibiotic course x2. We will try different antibiotic will have patient follow-up with [facility]. Discharge Plan Discharge Patient Disposition: Home Clinical Impression: Cellulitis Qualifiers: Site of cellulitis: extremity Site of cellulitis of extremity: lower extremity Laterality: left Qualified Code(s): L03.116 - Cellulitis of left lower limb Condition: Stable Prescriptions: New clindamycin HCl 300 mg capsule 300 mg PO Q8H 7 Days Qty: 21 RF: 0 No Action clotrimazole [Antifungal (clotrimazole)] 1 % cream 1 applic TOPICAL BID 28 Days Qty: 45 RF: 0 metformin 1,000 mg tablet 1,000 mg PO DAILY RF: 0 Onglyza 5 mg tablet 5 mg PO DAILY RF: 0 rosuvastatin 5 mg tablet 5 mg PO DAILY RF: 0 omeprazole 20 mg capsule,delayed release(DR/EC) 20 mg PO DAILY RF: 0 levothyroxine 75 mcg capsule 75 mcg PO DAILY RF: 0 furosemide 40 mg tablet 40 mg PO DAILY RF: 0 metoprolol succinate 25 mg tablet extended release 24 hr 12.5 mg PO DAILY RF: 0 glipizide 10 mg tablet 10 mg PO DAILY RF: 0 clotrimazole 1 % cream 1 applic TOPICAL BID Qty: 30 RF: 2 Discharge Orders: Discharge ED (Routine); Ordered 01/06/21 Ordered By: Jaswinder Thurston Referrals: Ronnie Carolina DO [Primary Care Provider] - Discharge Diet: Usual diet Discharge Activity: Resume usual activity Activity Restrictions/Additional Instructions: [facility] and redness in her lower extremity. Coding Level of Care Code ED Numerical Control Machine Operator for Aleksander Fwrosanne Exam Comprehensive
[2021-01-06 11:43] VITALS: BP 129/77; PULSE 87; RESP 15; O2SAT 94
== END 2021-01-06 11:44 | disposition home or self-care (01) ==
PROVIDERS: Emergency Provider Nurse Practitioner Family; PCP Emergency Medicine Emergency Medical Services
DX: L03.116 Cellulitis of left lower limb (principal); Z79.84 Long term (current) use of oral hypoglycemic drugs; J44.9 Chronic obstructive pulmonary disease, unspecified; E11.40 Type 2 diabetes mellitus with diabetic neuropathy, unspecified; Z87.891 Personal history of nicotine dependence
CPT/HCPCS: 93971; 99282

== ENCOUNTER 2021-01-25 12:49 | Emergency (ER) | payer OTHER, MEDICARE, SELFPAY ==
[2021-01-25 13:12] VITALS: BP 127/75; PULSE 82; RESP 22; TEMP 36.7; O2SAT 93; BMI 28.7
[2021-01-25 14:17] VITALS: BP 122/62; PULSE 73; RESP 18; O2SAT 99
--- NOTE | 2021-01-25 14:34 | ED_ITS ---
HPI - General Adult General: Chief complaint: General Medical Stated complaint: S[facility] BY [facility] Time Seen by Provider: 01/25/21 13:52 Source: patient and family () Mode of arrival: wheelchair Limitations: no limitations History of Present Illness: HPI narrative: Patient with increasing redness and pain to left lower leg over the past couple weeks. Patient denies any fever. Patient states she has been on 4 rounds of antibiotics with recently getting off Levaquin 1 or 2 days ago. Patient was on Levaquin for approximately 1 week. Patient reportedly started having redness and swelling to left lower leg on December 14 after couple abrasions to his lower leg. He had negative venous Doppler of left lower leg on January 06. Patient states the redness and swelling have worsened in the past couple weeks. He denies any fever. He is type II diabetic. Patient takes aspirin but no other blood thinners. He is allergic to sulfa. He does not smoke. Onset (ago): month(s) (Since December 14) Location: lower extremity (Left lower leg and foot) Radiation: non-radiation Severity: similar to prior episodes (Mild pain) Quality: aching Pain Consistency: constant Relieving factors: none Exacerbating factors: none Associated symptoms: Reports rash; Deny chest pain, confusion, dyspnea, fevers/chills, headache(s), malaise, nausea, short of breath or vomiting Treatments prior to arrival: other (Just got off Levaquin 1 or 2 days ago.) Review of Systems Const: Denies: fever(s), chills, body aches or malaise Eyes: Denies: change in vision ENMT: Denies: throat pain Card: Reports: edema (Left lower leg greater than right lower leg); Denies: chest pain, lightheadedness or leg pain with exertion Resp: Denies: dyspnea GI: Denies: abdominal pain, nausea or vomiting : Denies: flank pain Musc: Denies: neck pain or back pain Skin/Breast: Reports: rash, erythema and dry skin Neuro: Denies: headache(s), numbness in extremities, weakness in extremities, sensory changes or confusion Psych: Denies: anxiety Macario/Lymph: Denies: enlarged lymph nodes [facility] ED PFSH: Medical History (Updated 01/25/21 @ 16:54 by Basil Reeves MD) COPD (chronic obstructive pulmonary disease) Diabetes mellitus Neuropathy Family History Other Cancer Diabetes Social History Smoking and tobacco status: former smoker Alcohol intake: never Household members: spouse Marital status: Current occupational status: retired Physical Exam Const: COMMON NORMALS: no acute distress, patient oriented x3, no limitations and well nourished EXAM LIMITATIONS: altered mental status GENERAL APPEARANCE: cooperative NUTRITIONAL APPEARANCE: obese HENMT: COMMON NORMALS: normocephalic and atraumatic HEAD & SCALP: normocephalic and atraumatic FACE & SINUS: normal facial exam Eye: COMMON NORMALS: EOMs intact bilaterally Neck/C-Spine: COMMON NORMALS: full ROM, no lymphadenopathy, supple and no meningeal signs GENERAL: Yes normal visual inspection Lymph: LYMPHATIC: no lymphadenopathy noted Chest: COMMONS NORMALS: normal inspection of the chest and normal palpation of entire chest wall CHEST: No Ecchymosis present and No rash Resp: COMMON NORMALS: normal respiratory effort, No retractions and clear to auscultation bilaterally EFFORT & INSPECTION: No respiratory distress AUSCULTATION: clear to auscultation bilaterally Cardio: COMMON NORMALS: regular rate, regular rhythm and Peripheral pulses 2+ throughout JUGULAR VENOUS DISTENTION: no JVD RATE: regular rate RHYTHM: regular rhythm PERIPHERAL PULSES: Peripheral pulses 2+ throughout GI: COMMON NORMALS: Normal to inspection, nondistended, normoactive bowel sounds present and non-tender : COMMON NORMALS: Yes no CVA tenderness BLADDER/KIDNEY EXAM: Yes no CVA tenderness Back/Pelvis: COMMON NORMALS: no CVA tenderness Extremity: COMMON NORMALS: normal to inspection, full ROM and capillary refill normal LEFT LOWER EXTREMITY: Yes lower leg (Left lower leg with erythema and cellulitis) OTHER: Left lower extremity with mild dry skin, skin is dry. No drainage or abscess. Skin is warm to touch. Peripheral pulses are normal. No clubbing or cyanosis. Patient has 1+ pitting edema of the left lower extremity. Right lower extremity does not have any edema. Right lower extremity is normal. Cellulitis on the left extends from the left foot up to upper tibia. Cellulitis is circumferential. Leg is nontender to touch. Neuro: COMMON NORMALS: patient oriented x3, CN's II-XII intact bilaterally, no focal motor deficits and no sensory deficits noted MENINGEAL SIGNS: Yes no meningeal signs Psych: COMMON NORMALS: mental status grossly normal and Normal thought process present THOUGHT PROCESS: Normal thought process present Skin: COMMON NORMALS: no wounds GENERAL SKIN EXAM: dry skin and other (Cellulitis from upper tibia down to the left foot) Course Vital Signs: Vital signs: Vital Signs Temperature 98.1 F 01/25/21 13:12 Pulse Rate 91 01/25/21 15:48 Respiratory Rate 18 01/25/21 15:48 Blood Pressure 122/62 01/25/21 15:48 Pulse Oximetry 94 01/25/21 15:48 MDM - General Adult MDM Narrative: Medical decision making narrative: Patient's venous Doppler is negative. His white blood cell count is negative. Normal differential on his CBC. I believe patient is suffering from venous stasis and likely thrombophlebitis. We will try indomethacin for the patient. Patient was given a half amp of D50 prior to discharge. Medical Records: Attestation: I reviewed the patient's medical records. Medical records narrative: Vishal Boswell Age: 75 Gender: M : 1945 Exam Date: 01/06/2021 11:18 Ordering Phys: Jaswinder Thurston Technologist: Patito Torres Exam Location: [facility] [place] Indication: SWELLING, PAIN HISTORY: Lower extremity swelling. PROCEDURES: Venous duplex imaging was performed in only the left lower extremity. The following venous structures were evaluated: common femoral vein, profunda vein, proximal portion of the greater saphenous vein, superficial femoral vein, and the popliteal vein. In addition, the posterior tibial and peroneal trunk were evaluated. FINDINGS: Normal 2-D Doppler and augmentation and compressibility throughout the lower extremity venous structures. Additional imaging through the proximal calf veins also reveals no thrombus. Limited evaluation of the greater saphenous vein is patent with no thrombus.. CONCLUSIONS No evidence of left lower extremity DVT. Satya Lackey MD (Electronically Signed) Final Date: 06 January 2021 12:18 Lab Data: Attestation: I reviewed the patient's lab results. Labs: Lab Results 01/25/21 01/25/21 Range/Units 15:07 15:07 WBC 5.1 (4.0-10.0) 10^3/ uL RBC 4.50 (4.1-5.3) 10^6/u L Hgb 13.1 (11.7-16.6) g/dL Hct 43.5 (42.0-52.0) % MCV 96.7 H (80-94) fL MCH 29.1 (28.0-34.0) pg MCHC 30.1 (30.0-36.0) g/dL RDW 14.9 (12.1-15.1) % Plt Count 155 (130-400) 10^3/c mm MPV 9.3 (7.4-10.4) fL Neut % (Auto) 57.0 % Lymph % (Auto) 16.4 % Wilkin % (Auto) 11.3 % Eos % (Auto) 14.1 % Baso % (Auto) 0.8 % Neut # (Auto) 2.88 (1.8-7.7) 10^3/u L Lymph # (Auto) 0.8 (0.8-4.8) 10^3/u L Wilkin # (Auto) 0.6 (0.2-0.9) 10^3/u L Eos # (Auto) 0.7 (0.0-0.8) 10^3/u L Baso # (Auto) 0.0 (0.0-0.1) 10^3/u L Nucleated RBC % (a uto) 0 % Nucleated RBCs # 0.0 /100WBC Sodium 144 (136-145) mmol/L Potassium 4.3 (3.5-5.1) mmol/L Chloride 96 L (98-107) mmol/L Carbon Dioxide 38 H (22-29) mmol/L Anion Gap 14.3 (5-19) BUN 23 (8-23) mg/dL Creatinine 1.1 (0.7-1.2) mg/dL GFR Calculation Not Reportable Glucose 59 L (65-115) mg/dL Calculated Osmolal ity 299 H (285-295) mOsm/k g Calcium 9.3 (8.5-10.5) mg/dL Imaging Data^: US Vascular: Radiologist's impression: Ian Boswellglo #: [id number]: 5Acct#:[id number]/Sex: 75 / MADM Date: 01/25/21Loc: ERRoom/Bed:Attending Dr: Ordering Provider/Ordering MD: Basil Reeves MD Date of Service: 01/25/21 Procedure(s): [place] [address] Accession Number(s): [id number] Report Number: [id number] Vishal Boswell Age: 75 Gender: M : 1945 Exam Date: 01/25/2021 14:48 Ordering Phys: Basil Reeves MD Technologist: JESS Exam Location: [facility] [place] Indication: REDNESS, EDEMA HISTORY: SEVERAL ROUNDS OF ANTIBIOTICS PROCEDURES: Venous duplex imaging was performed in only the left lower extremity. The following venous structures were evaluated: common femoral vein, profunda vein, proximal portion of the greater saphenous vein, superficial femoral vein, and the popliteal vein. In addition, the posterior tibial and peroneal trunk were evaluated. FINDINGS: Normal 2-D Doppler and augmentation and compressibility throughout the lower extremity venous structures. Additional imaging through the proximal calf veins also reveals no thrombus. Limited evaluation of the greater saphenous vein is patent with no thrombus. CONCLUSIONS No DVT left lower extremity. Dr. Adrienne Wheeler DO (Electronically Signed) Final Date: 25 January 2021 15:28 Discharge Plan Discharge Patient Disposition: Home Clinical Impression: Thrombophlebitis leg, Hypoglycemia Condition: Stable Prescriptions: New indomethacin 25 mg capsule 25 mg PO BID Qty: 30 RF: 1 No Action metformin 1,000 mg tablet 1,000 mg PO BID RF: 0 rosuvastatin 5 mg tablet 5 mg PO DAILY RF: 0 omeprazole 20 mg capsule,delayed release(DR/EC) 20 mg PO DAILY RF: 0 levothyroxine 75 mcg capsule 75 mcg PO DAILY RF: 0 furosemide 40 mg tablet 40 mg PO DAILY RF: 0 glipizide 10 mg tablet 20 mg PO DAILY RF: 0 Aspir-81 81 mg PO DAILY RF: 0 albuterol sulfate 90 mcg/actuation Hfa Aerosol Inhaler See Rx Instructions .ROUTE .COMPLEX RF: 0 colchicine 0.6 mg Tablet 0.6 mg PO DAILY RF: 0 docusate sodium 100 mg Tablet 200 mg PO BID RF: 0 metoprolol tartrate 25 mg tablet 25 mg PO BID RF: 0 [place] Beets 1 tab PO DAILY RF: 0 magnesium 400 mg PO DAILY RF: 0 multivitamin 1 tab PO DAILY RF: 0 potassium 99 mg PO DAILY RF: 0 Discharge Orders: Discharge ED (Routine); Ordered 01/25/21 Ordered By: Basil Reeves Referrals: Ronnie Carolina DO [Primary Care Provider] - Discharge Diet: Usual diet Discharge Activity: Increase activity as tolerated Patient Instructions: Superficial Thrombophlebitis (ED) Activity Restrictions/Additional Instructions: Take indomethacin twice a day to help with inflammation and redness and left lower leg. You appear to have thrombophlebitis. No evidence of an infection by your lab work. Venous Doppler ultrasound of your left leg was normal. Follow- up with your primary care doctor in the next week to make sure your kidney function is okay while taking the indomethacin. While on the indomethacin, make sure you take this medication with food and drink plenty of water. If you have any stomach upset, stop the medication. 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
[2021-01-25 15:16] LABS: Basophils % 0.8 %; Eosinophils # 0.7 10^3/uL (0.0-0.8); Eosinophils % 14.1 %; Hematocrit 43.5 % (42.0-52.0); Hemoglobin 13.1 g/dL (11.7-16.6); Lymphocytes # 0.8 10^3/uL (0.8-4.8); Lymphocytes % 16.4 %; Mean Corpuscular HGB Conc 30.1 g/dL (30.0-36.0); Mean Corpuscular Hemoglobin 29.1 pg (28.0-34.0); Mean Corpuscular Volume 96.7 fL (80-94); Mean Platelet Volume 9.3 fL (7.4-10.4); Monocytes # 0.6 10^3/uL (0.2-0.9); Monocytes % 11.3 %; Neutrophils # 2.88 10^3/uL (1.8-7.7); Nucleated Red Blood Cells % 0 %; Platelet Count 155 10^3/cmm (130-400); Red Cell Distribution Width 14.9 % (12.1-15.1); White Blood Count 5.1 10^3/uL (4.0-10.0)
[2021-01-25 15:34] LABS: Anion Gap 14.3 (5-19); Blood Urea Nitrogen 23 mg/dL (8-23); Calcium 9.3 mg/dL (8.5-10.5); Carbon Dioxide 38 mmol/L (22-29); Chloride 96 mmol/L (98-107); Glucose 59 mg/dL (65-115); Osmolality Calculated 299 mOsm/kg (285-295); Potassium 4.3 mmol/L (3.5-5.1); Sodium 144 mmol/L (136-145)
[2021-01-25 15:48] VITALS: BP 122/62; PULSE 91; RESP 18; O2SAT 94
[2021-01-25] MEDS: dextrose 50% syringe 50 mL 25 ML IVP (16:52)
[2021-01-25 17:23] VITALS: BP 122/62; PULSE 73; RESP 18; O2SAT 98
== END 2021-01-25 17:19 | disposition home or self-care (01) ==
PROVIDERS: Emergency Provider Family Medicine; PCP Emergency Medicine Emergency Medical Services
DX: I80.3 Phlebitis and thrombophlebitis of lower extremities, unspecified (principal); E11.649 Type 2 diabetes mellitus with hypoglycemia without coma; Z79.84 Long term (current) use of oral hypoglycemic drugs; Z79.82 Long term (current) use of aspirin; J44.9 Chronic obstructive pulmonary disease, unspecified; E11.40 Type 2 diabetes mellitus with diabetic neuropathy, unspecified; Z87.891 Personal history of nicotine dependence
CPT/HCPCS: 36415; 80048; 85025; 87040; 93971; 96374; 99284

== ENCOUNTER 2021-05-23 13:25 | Outpatient (CLI) | payer OTHER, SELFPAY | END 2021-05-23 13:26 | disposition home or self-care (01) | LOC: WOUND 13:26 | PROVIDERS: PCP Emergency Medicine Emergency Medical Services; Visit Provider Emergency Medicine | DX: S51.822A Laceration with foreign body of left forearm, initial encounter (principal); W07.XXXA Fall from chair, initial encounter; Z87.891 Personal history of nicotine dependence | CPT/HCPCS: 11042; G0463 ==

== ENCOUNTER 2021-06-02 13:09 | Outpatient (CLI) | payer OTHER, SELFPAY | END 2021-06-02 13:10 | disposition home or self-care (01) | LOC: WOUND 13:13 | PROVIDERS: PCP Emergency Medicine Emergency Medical Services; Visit Provider Emergency Medicine | DX: S51.822A Laceration with foreign body of left forearm, initial encounter (principal); W07.XXXA Fall from chair, initial encounter; J44.9 Chronic obstructive pulmonary disease, unspecified; I10 Essential (primary) hypertension; E11.9 Type 2 diabetes mellitus without complications; Z87.891 Personal history of nicotine dependence | CPT/HCPCS: 11042 ==

== ENCOUNTER 2021-06-09 14:11 | Outpatient (CLI) | payer OTHER, SELFPAY | END 2021-06-09 14:12 | disposition home or self-care (01) | LOC: WOUND 14:13 | PROVIDERS: PCP Emergency Medicine Emergency Medical Services; Visit Provider Nurse Practitioner Family | DX: Z09 Encounter for follow-up examination after completed treatment for conditions other than malignant neoplasm (principal); Z87.891 Personal history of nicotine dependence | CPT/HCPCS: 99212 ==

== ENCOUNTER 2021-09-30 08:32 | Outpatient (CLI) | payer OTHER, SELFPAY ==
--- NOTE | 2021-09-30 08:43 | CT_ITS ---
WS: [id number] CT CHEST, ABDOMEN AND PELVIS WITH CONTRAST HISTORY: BLADDER CANCER TECHNIQUE: Contiguous 5 mm axial imaging performed through the chest, abdomen and pelvis with IV cont rast, oral contrast has been provided. Coronal and sagittal reformats chest. Coronal and sagittal ref ormats through the abdomen and pelvis. All CT scans at [facility] use at least one of these d ose optimization techniques: automated exposure control; mA and/or kV adjustment per patient size (in cludes targeted exams where dose is matched to clinical indication); or iterative reconstruction. CONTRAST: Omnipaque 300; 95 mL IV. DLP: 1643.62 mGy.cm COMPARISON: 10/07/2020, 09/24/[address]: Hyperinflated lungs. Benign granuloma upper medial RIGHT lobe. There is an additional stabl e 7 mm noncalcified well-circumscribed nodule in the RIGHT upper lobe with stability. 2 mm nodule RIG HT lower lobe, image 40 series 4 stable. No new nodular increase in nodule size. Linear areas of subs egmental atelectasis at the lung bases. No mediastinal or hilar adenopathy. Atherosclerotic plaque wi thin the aorta. No aneurysm. Normal size pulmonary artery. Mild cardiomegaly. Small hiatal hernia. Abdomen CT: Hepatic and splenic granulomata. No metastatic lesions. Portal vein is patent. Well-diste nded gallbladder with stones. No acute cholecystitis. No bile duct dilatation. Normal pancreas. No ad renal mass. No RIGHT renal obstruction or mass. There is a nonobstructing calcification measuring 3 m m in the mid LEFT kidney. No solid mass. Hypoechoic cortical nodule in the posterior kidney is too sm all to characterize. Moderate atherosclerotic plaque within the aorta. The distention of the stomach with contrast. No small bowel obstruction. There is very mild wall thic kening involving the duodenum which could be due to peristalsis. Moderate fecal retention. Appendix i s not definitely identified. Increase in thoracic kyphosis. Bones are demineralized with disc space narrowing and osteophytosis. N o osteoblastic or osteolytic bone lesions are identified. Pelvic CT: Normally distended urinary bladder. There is a small bladder diverticulum from the posteri or LEFT urinary bladder. Mild thickening of the bladder wall is similar to the prior study. No focal thickening. CT/CT chest abd pel w con* IMPRESSION: 1. No evidence for metastatic disease within the chest, abdomen or pelvis. 2. Stable 7 mm noncalcified nodule RIGHT upper lobe. 3. Mild bladder wall thickening and a posterior LEFT bladder diverticulum. No change. 4. No ascites. No metastatic disease in the liver or adrenal glands. 5. Cholelithiasis.
[2021-09-30] MEDS: iohexol 300 mg/mL 50 mL Btl PO (10:52)
[2021-09-30] MEDS: iohexol 300 mg/mL 100 mL Btl IV (11:22)
[2021-10-03 09:20] LABS: Blood Urea Nitrogen 27 mg/dL (8-23)
== END 2021-09-30 08:33 | disposition home or self-care (01) ==
LOC: RAD 08:33
PROVIDERS: PCP Emergency Medicine Emergency Medical Services; Visit Provider Internal Medicine Medical Oncology
DX: C67.0 Malignant neoplasm of trigone of bladder (principal); R91.1 Solitary pulmonary nodule; K80.20 Calculus of gallbladder without cholecystitis without obstruction
CPT/HCPCS: 71260; 74177; 82565; 84520

== ENCOUNTER 2021-10-04 13:17 | Outpatient (CLI) | payer OTHER, SELFPAY ==
--- NOTE | 2021-10-05 07:36 | ONC FU_ITS ---
Dr. Green Patient Follow-Up Note Patient: Vishal Boswell Unit #: [id number]: 1945 Dicatated By: Chivo Green M.D.Date of Visit:Oct 04, 2021 Onc Med Follow-up/Prog Note Chief Complaint: Bladder cancer. 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 He had presented with hematuria. A renal ultrasound on 07/07/2011 showed a 2 cm mass in the bladder. The CT scan of the abdomen and pelvis on 07/26/2011 showed a 3 cm mass rom the posterior aspect of the bladder. There was no associated lymphadenopathy. On 09/18/11 cystoscopy showed large nodular tumor in the mid trigone with continuous smaller papillary tumors greater than 5 cm. He underwent a transurethral resection of the bladder tumor. Pathology showed high-grade papillary carcinoma infiltrating the muscularis propria; clinical stage at least II. He was found to be a poor surgical candidate. He had a marginal performance status, his mobility was limited by severe COPD and significant osteoarthritis. He was first seen by Dr. Saavedra on 11/02/2011. A CT of the chest, abdomen, and pelvis showed no evidence of distant metastatic disease. Bone scan on 11/22/11 showed a focus within the L1 vertebral body. A CT-guided biopsy on 11/23/2011 confirmed metastatic non small cell cancer, consistent with transitional carcinoma of the bladder. The palliative chemotherapy with cisplatin and gemcitabine was initiated on 11/27/2011, complicated with grade 4 thrombocytopenia without bleeding and grade 4 neutropenia. Just prior to cycle 2 he was admitted with acute non-ST elevation [place], treated with medical management alone. His further chemotherapy was switched to carboplatin AUC of 4 day 1 and gemcitabine 800 mg/m2 day 1 and 8 out of 3 week cycle, complicated with grade 2 thrombocytopenia with slow recovery. His platelet radha at 43. Cycle 6 was given on 04/08/2012. Following that cycle of carboplatin and half dose of gemcitabine the patient developed multilobular pneumonia. He returned with recurrent hematuria. His bone scan on 08/05/2013 showed no suspicious metastatic lesions, although he had multiple findings of degenerative disease. His CT 09/11/2013 showed increased and new bladder lesions. TURBT on 10/06/2013 showed large muscle invasive tumor at the trigone. He had additional multiple large papillary tumors scattered throughout the bladder. The tumors were fulgurated. The patient began on salvage radiation therapy with weekly carboplatin AUC 1.5 on 11/11/2013-12/19/2013. He was able to receive 4 doses, last delivered on 12/02/2013, his platelet radha at 65,000, hemoglobin radha at 7.7 mg/dL, that recovered without transfusions. Follow up CT of the chest and abdomen on 01/27/2014 showed an increase in the bladder mass. He had no evidence of distant metastatic disease. His bone scan on 01/27/2014 remained negative for metastatic disease. He was then followed expectantly. His restaging CT scans of the chest, abdomen, and pelvis on 01/02/2017 showed bilateral iliac chain lymphadenopathy which had increased from the study in September. Also noted was significant enlargement of the soft tissue masses along the right iliac chain, the largest measuring 4.1 x 3.1 cm. There was additional adenopathy along the left iliac chain, the largest measuring 1.9 cm. He had further evaluation with PET/CT on 02/02/2017. Findings in the thorax were limited to 2 small right upper lobe pulmonary nodules, one measuring 6 mm and the other 5 mm, and neither were FDG avid. The abdomen and pelvis showed a large, confluent right presacral lymph node mass invading the right psoas muscle. It measured 5.6 x 4.2 x 6.6 cm with maximum SUV 20.7. A large, and left iliac lymph node was noted to abut the left psoas muscle measured 2 x 2 0.2 cm with maximum SUV 13.6. There was additional left presacral and right internal iliac adenopathy. The urinary bladder demonstrated expected excreted activity with a small posterior lateral left urinary diverticulum noted. He began second line systemic therapy with pembrolizumab, cycle 1 on 02/19/2017. He experienced some treatment related toxicity. He indicated that he was really sick and that he couldn't keep anything down for several days. His treatment was then put on hold while he underwent palliative radiation to the pelvis. His treatment was completed on 03/23/2017 to a total dose of 3120 cGy. He tolerated it well. He was then able to proceed with a second cycle of treatment on 03/27/2017. He was able to tolerate it better with a more aggressive anti-emetic regimen, and he then continued treatment at 3-week intervals. Restaging CT scans of the chest, abdomen, and pelvis on 12/25/2018 showed no evidence of new or progressed metastatic disease. He received cycle of 30 of pembrolizumab on 12/26/2018. At that point he was showing some further decline in performance status. As he was close to completing 2 years of treatment, I opted to stop the pembrolizumab and transition to observation/expectant management. His surveillance CT scans on 03/13/2019 showed stable right upper and right middle lobe pulmonary nodules and stable dependent changes at the lung bases. Overall there was no evidence for metastatic disease to the chest, abdomen, or pelvis. As of his follow-up visit on 06/12/2019 he had shown some improvement in his performance status after stopping treatment. He was recommended to continue on observation/expectant management. As of his follow-up visit on 09/15/2019 he was doing well clinically with no evidence of recurrence of the bladder cancer. His further follow-up here was interrupted due to the COVID-19 pandemic restrictions. However, [facility] His [facility] CT scans on 10/07/2020 showed unchanged right upper lobe pulmonary nodule. A pleural-based nodule in the posterior left inferior pleura appeared stable. There were no other pulmonary nodules and there was no axillary or significant mediastinal adenopathy. There was no evidence of recurrent or metastatic disease in the abdomen/pelvis. I had seen him for a follow-up visit on 10/20/2020. At that point he continued to have fairly limited activity. His reported that he was getting more forgetful. Overall, though, he appeared stable clinically with no obvious recurrence/progression of the bladder cancer. His medical illnesses include COPD, type II diabetes, coronary artery disease, peripheral arterial disease, GERD, degenerative arthritis, and gout. He has a history of previous stroke. He has smoked in the past, but he quit smoking at least 15 years ago. INTERIM HISTORY: He had a scheduled follow-up [facility] the [facility] on 09/22/2021. On his laboratory studies, he was borderline anemic with hemoglobin 12.8 g and the white blood cell count was slightly low at 3800. Platelet count was normal at 151,000. Renal function was stable with BUN 28 and creatinine 1.02 mg/dL. Bilirubin and liver enzymes were normal. His B12 level was found to be low at 188 pg/mL. His serum iron was in the low normal range at 74 mcg/dL. His urinalysis showed moderate blood and there were 323 RBCs per hpf noted. With that finding, he had restaging CT scans on 09/30/2021 which showed no evidence for metastatic disease within the chest, abdomen, or pelvis. A 7 mm noncalcified right upper lobe pulmonary nodule. Stable. There was mild bladder wall thickening and a posterior left lateral diverticulum which also appeared unchanged from previous studies. There was no lymphadenopathy noted and there were no osteoblastic or osteolytic bone lesions identified. He is seen for a follow-up visit. He has started on oral B12 supplement. He says he does not feel good, but that is mainly due to pain in his lower back on the right side. He has had lots of dizzy spells. His thinks he may have suffered a slight stroke within the last couple of weeks, as he was having episodes in which he would seem to stare off into space and at times he was doing odd things. He has had very limited activity. He is able to do some walking, but he is having to use a cane for balance. He is spending most of his time in the recliner. ECOG score is 3. He has good appetite. He has no fever or night sweats. He has had some sinus drainage and he has cough productive of thick sputum. His breathing has been rough at times. He is on continuous oxygen. He recently had some sharp pain in the left chest and arm. He has had some nausea the last couple of days and he has ongoing problems with constipation. It is being managed with senna/docusate. He says his urination is not bad. He does have some urgency. He had not actually seen blood in the urine, but his thinks his urine smells of blood. He has no other joint or bone pain. He has no focal neurologic symptoms. Medications: Aleve 220 mg - Take 1 Tablet Oral b.i.d. PRN, Aspirin 81 mg - Take 1 Tablet Oral daily, Benadryl Allergy 1 Tablet (of 25 mg) Oral b.i.d., Flonase 1 (50 mcg/act) Suspension Nasal daily, GlyBURIDE 5 mg - Take 1 Tablet Oral b.i.d., Lasix 1 (40 mg) Tablet Oral daily, Levothyroxine Sodium 1 (75 mcg) Tablet Oral daily, MetFORMIN HCl 1 (500 mg) Tablet Oral b.i.d., Metoprolol Tartrate 0.5 (100 mg) Tablet Oral b.i.d., Multivitamins 1 Capsule Oral daily, Omeprazole 1 (20 mg) Capsule Delayed Release Oral daily, Prochlorperazine Maleate 1 (10 mg) Tablet Oral q 4 hours PRN, Proventil 2 puff(s) (of 90 mcg/act) Aerosol, solution Inhalation PRN, Rosuvastatin Calcium 1 (5 mg) Tablet Oral daily, SAXagliptin HCl 1 Tablet (of 2.5 mg) Oral daily, Senna S 2 (8.6-50 mg) Tablet Oral b.i.d. PRN, Vitamin B 12 1 Tablet Oral daily, Zofran 1 (8 mg) Tablet Oral q 4 hours PRN Allergies: Sulfa Vital Signs: Performed on Oct 04, 2021 14:08 Height - 71.00 in Weight - 191.2 lbs (LOW) BSA - 2.07 sq.m BMI - 26.67 Temperature - 98.3 F (LOW) Pulse - 83 /min Respiration - 18 /min BP - 144/73 mm(hg) (HIGH) O2 Sat - 98 % Pain - 6 Fatigue - 7 Physical Examination: Constitutional - He appears generally weak, Eyes - Sclerae nonicteric. Conjunctivae clear, ENMT - No lesions noted in the oral cavity, Hematologic/Lymphatic - No cervical, clavicular, or axillary adenopathy, Respiratory - Lungs show diminished air movement bilaterally. There are scattered rales present, Cardiovascular - Heart tones are distant. The rhythm appears regular. There is no murmur, gallop, or rub noted, Abdomen - Mildly distended but soft. Liver and spleen are not enlarged. There is no abdominal mass or ascites noted. There is no inguinal adenopathy noted, Extremities - There are venous stasis changes bilaterally. There is mild lower extremity edema, Neurologic - No focal neurologic deficits noted. Problem List: 1. High-grade papillary carcinoma of the bladder, stage IV, initially diagnosed in August 2011. 2. COPD. 3. Type II diabetes. 4. Coronary artery disease. 5. Peripheral arterial disease. 6. History of prior stroke. 7. GERD. 8. Degenerative arthritis. 9. Gout. Problems Addressed with this Encounter and Plan: Patient with high-grade papillary carcinoma of the bladder, stage IV, initially diagnosed in August 2011. His initial treatment included TURBT followed by 6 cycles of kasaan/gemcitabine chemotherapy, complicated by significant thrombocytopenia and neutropenia. Restaging CT after 6 cycles of treatment in March 2012 showed no evidence of active disease. TURBT was performed on 10/06/13. CT showed local recurrence in the bladder only. He received palliative concurrent chemoradiation with carboplatin AUC 1.5, completed on 12/19/13. In the settings of recurrent hematuria, CT on 12/13/2015 revealed new retroperitoneal and pericaval lymphadenopathy. He began 2nd line systemic therapy with pembrolizumab, cycle 1 on 02/19/2017. He experienced some acute toxicity, mainly nausea/vomiting, lasting several days. His treatment was then put on hold while he underwent palliative radiation to the pelvis. He completed treatment on 03/23/2017 to a total dose of 3120 cGy. He had some symptomatic improvement with the radiation. He continued, though, to have very marginal performance status. He was able to proceed with cycle 2 of pembrolizumab on 03/27/2017. He tolerated it better with more aggressive anti-emetic therapy. He then continued treatment at 3-week intervals. During subsequent follow-up, his clinical status had been fairly stable, though he continued to have very limited activity tolerance. His restaging CT scans on 12/25/2018 showed no evidence of disease progression. He continued with cycle 30 of pembrolizumab on 12/26/2018, though he was experiencing some further decline in his performance status. As he was close to completing 2 years of treatment, I opted to stop the pembrolizumab and transition to observation/expectant management. His surveillance CT scans from 03/13/2019 showed no obvious recurrence/progression of the bladder cancer. During subsequent follow-up he remained stable clinically. As of his follow-up visit in September 2020 there was still no evidence of recurrence/progression of the bladder cancer. He continued expectant management. At his recent follow-up visit at the [facility], there was evidence of hematuria on his urinalysis. His restaging CT scans on 09/30/2021 showed no evidence of metastatic disease in the chest, abdomen, or pelvis. Since his visit last year there has been further decline in his performance status, but thus far it does not appear to be associated with recurrence of the bladder cancer. With his having hematuria, he should have a surveillance cystoscopy, and I will see if I get can approval from the [facility] for a follow-up visit with Dr. Argueta. I will otherwise just plan to see him again as needed. Signed By: Chivo Green M.D. <<Signature on File>>
== END 2021-10-04 13:18 | disposition home or self-care (01) ==
PROVIDERS: PCP Emergency Medicine Emergency Medical Services; Visit Provider Internal Medicine Medical Oncology
DX: Z85.51 Personal history of malignant neoplasm of bladder (principal); J44.9 Chronic obstructive pulmonary disease, unspecified; E11.9 Type 2 diabetes mellitus without complications; I25.10 Atherosclerotic heart disease of native coronary artery without angina pectoris; I73.9 Peripheral vascular disease, unspecified; K21.9 Gastro-esophageal reflux disease without esophagitis; Z79.899 Other long term (current) drug therapy; Z86.73 Personal history of transient ischemic attack (TIA), and cerebral infarction without residual deficits
CPT/HCPCS: 99214

== ENCOUNTER → 2021-10-24 08:24 | Outpatient (BNVA) | payer OTHER, SELFPAY | PROVIDERS: PCP Emergency Medicine Emergency Medical Services; Visit Provider Thoracic Surgery (Cardiothoracic Vascular Surgery) | DX: E11.622 Type 2 diabetes mellitus with other skin ulcer (principal); I96 Gangrene, not elsewhere classified; L97.821 Non-pressure chronic ulcer of other part of left lower leg limited to breakdown of skin; Z87.891 Personal history of nicotine dependence | CPT/HCPCS: 97597; G0463 ==

== ENCOUNTER 2021-10-26 13:54 | Observation (INO) | payer OTHER, SELFPAY ==
[2021-10-25 14:25] VITALS: BMI 28.0
[2021-10-26] VITALS (29 sets, daily range): BP systolic 122–186; BP diastolic 70–98; PULSE 55–91; RESP 12–22; TEMP 36.3–36.5; O2SAT 90–99; BMI 28.0
[2021-10-26 06:34] LABS: Glucose Point of Care 105 mg/dL (70-110)
[2021-10-26] MEDS: sodium chloride 0.9% 1,000 ML 30 ML IV ×2 (06:38→16:12)
--- NOTE | 2021-10-26 06:44 | W.PM.OPSUD ---
Surgery/Procedure H&P Update DATE OF PROCEDURE: October 26, 2021 DATE H&P PERFORMED: 10/21/21 H&P UPDATE INFORMATION: I have reviewed H&P completed within last 30 days, I have examined patient prior to procedure and No changes to prior documentation PREOP DIAGNOSIS: Bladder lesion, hematuria PLANNED PROCEDURE: Operation Date: 10/26/21 07:00 Proposed Procedures p Cystoscopy 54143/c67.9(Not Applicable) - Kody Argueta MD s Transurethral Resection Bladder Tumor(Not Applicable) - Kody Argueta MD
--- NOTE | 2021-10-26 06:48 | ANES.PREANE2 ---
Pre-Anesthetic Assessment Height/Weight: Height 1.75 m Weight 86.183 kg Temp Pulse Resp BP Pulse Ox 97.7 F 64 16 169/85 95 10/26/21 06:39 10/26/21 06:39 10/26/21 06:39 10/26/21 06:39 10/26/21 06:39 Preop Diagnosis: Bladder lesion, hematuria Operation Date: 10/26/21 07:00 Proposed Procedures p Cystoscopy 67730/c67.9(Not Applicable) - Kody Argueta MD s Transurethral Resection Bladder Tumor(Not Applicable) - Kody Argueta MD Familial anesthetic complications: None Was Beta Joe taken within 24 hours: Yes Was Clonidine taken within 24 hours: N/A Last intake: Intake Last Liquid Date 10/25/21 Last Liquid Time 22:30 Last Solid Date 10/25/21 Last Solid Time 22:30 Social No alcohol and No tobacco Exam alert, oriented x 3 and regular rate & rhythm Course breath sounds b/l Airway Submandibular: within normal limits Cervical ROM: Other (Limited extension ) Mallampati: Class II Dentition: false History/ROS No significant complaints Pulmonary Chronic Obstructive Pulmonary Disease On home O2 CV/HEM Coronary Artery Disease (S/P stent) and Myocardial Infarction METS < 4 Bladder tumor Hepatic None reported GI None reported Metabolic Diabetes Mellitus Musc/skel None reported Neuropsych Neuropathy Anesthetic Plan ASA status: 3 Anesthesia: Anesthesia Evaluation and General Other: We discussed risk and benefits of general anesthesia including PONV, sore throat (sometimes severe), corneal abrasion, positioning and peripheral nerve injuries, life threatening allergic reaction, post operative ICU admission requiring prolonged intubation, stroke, heart attack, , and rare incidences of recall. Patient consents to proceed with general anesthesia. Risk of > 500 ml blood loss (7ml/kg in children): No Medications/Allergies Home Medications Medication Instructions Recorded Confirmed Last Taken Type levothyroxine 75 mcg capsule 75 mcg PO DAILY 10/21/19 10/25/21 10/25/21 History metformin 1,000 mg tablet 1,000 mg PO BID 10/21/19 10/25/21 10/25/21 07:00 History omeprazole 20 mg capsule,delayed 20 mg PO DAILY 10/21/19 10/25/21 10/25/21 History release rosuvastatin 5 mg tablet 5 mg PO DAILY 10/21/19 10/25/21 10/25/21 History Aspir-81 81 mg PO DAILY 01/25/21 10/25/21 10/21/21 History albuterol sulfate 90 mcg/actuation See Rx Instructions .ROUTE .COMPLEX 01/25/21 10/26/21 10/26/21 History aerosol inhaler colchicine 0.6 mg tablet 0.6 mg PO DAILY 01/25/21 10/25/21 10/25/21 History docusate sodium 100 mg tablet 200 mg PO BID 01/25/21 10/25/21 10/25/21 History indomethacin 25 mg capsule 25 mg PO BID #30 cap 01/25/21 10/25/21 Unknown Rx magnesium 400 mg PO DAILY 01/25/21 10/25/21 10/25/21 History multivitamin 1 tab PO DAILY 01/25/21 10/25/21 10/25/21 History potassium 99 mg PO DAILY 01/25/21 10/25/21 10/25/21 History budesonide 0.5 mg/2 mL suspension 0.5 mg (2 mL) INHALATION BID #60 ml 03/16/21 10/25/21 Unknown Rx for nebulization (Pulmicort) furosemide 40 mg tablet 40 mg PO BID tab 03/16/21 10/25/21 10/25/21 History bisacodyl 5 mg tablet,delayed 5 mg PO BID tab 10/21/21 10/26/21 10/26/21 History release cyanocobalamin (vitamin B-12) 500 500 mcg PO DAILY 10/21/21 10/25/21 10/25/21 History mcg tablet glipizide 10 mg tablet 10 mg PO DAILY tab 10/21/21 10/26/21 10/25/21 07:00 History metoprolol tartrate 25 mg tablet 25 mg PO DAILY tab 10/21/21 10/26/21 10/26/21 05:00 History Allergies Allergy/AdvReac Type Severity Reaction Status Date / Time Sulfa (Sulfonamide Allergy Unknown Unknown Verified 10/21/21 09:55 Antibiotics) Current Medications Generic Name Dose Route Start Last Admin Trade Name Freq PRN Reason Stop Dose Admin Sodium Chloride 1,000 mls @ 30 mls/hr 10/26/21 06:30 10/26/21 06:38 Sodium Chloride 0.9% IV 10/27/21 06:29 30 mls/hr .Q24H DIANELYS Administration PFSH Anesthesia Medical History COPD (chronic obstructive pulmonary disease) Diabetes mellitus Neuropathy Family History Father , AT AGE 77 Stroke Mother , AT AGE 84 Cancer Dementia Other Diabetes Social History Smoking and tobacco status: former smoker Alcohol intake: never Marital status: service: Yes () 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
--- NOTE | 2021-10-26 06:50 | ECG_ITS ---
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 Measurements Intervals [place] Rate: 57 P: 88 NE: 185 QRS: -57 QRSD: 156 T: -30 QT: 431 QTc: 420 Interpretive Statements SINUS BRADYCARDIA RIGHT BUNDLE BRANCH BLOCK [120+ ms QRS DURATION, UPRIGHT V1, 40+ ms S IN I/aVL/V4/V5/V6] INFERIOR MYOCARDIAL INFARCTION , OF INDETERMINATE AGE [40+ ms Q WAVE AND/OR ST/T ABNORMALITY IN II/aVF] Compared to ECG 03/10/2016 17:39:05 Ventricular premature complex(es) no longer present Myocardial infarct finding still present Electronically Signed On 10-26-2021 18:30:52 CDT by Lina Calderon M.D. [id number]
--- NOTE | 2021-10-26 06:51 | P.OP_ITS ---
Operative Report Date of procedure: October 26, 2021 Pre-op diagnosis: Bladder lesion, hematuria Post-op diagnosis: Bladder lesion, hematuria Procedure done: Cystoscopy, transurethral resection/fulguration of bladder lesion large Specimens removed/disposition: Bladder lesions Pathology: Bladder lesions Surgeon: Ellie Anesthesia: MAC Estimated blood loss: Minimal Urine output: Not measured Complications: None Findings: Findings as per clinic cystoscopy. Fairly large area of mucosal abnormality that did not appear to be invasive. Consistent with either low-grade TCCA, CIS or possibly radiation cystitis. Brief History: Mr. Boswell is a very pleasant 76-year-old white male who approximately 10 years ago was diagnosed with metastatic bladder cancer. He had chemo radiation therapy for local disease and was treated with Keytruda for metastatic disease with excellent response. As of recent visit with Dr. Green there was no evidence of progressive disease. Recently complained of gross hematuria and outpatient cystoscopy revealed suspicious mucosa worrisome for recurrent TCCA or potentially radiation cystitis. Recommended TURBT. Procedure: After routine preoperative evaluation examination and obtaining of informed c onsent he was taken to the operating suite on 10/26/2021 where general anesthesia was administered without difficulty after appropriate timeout was performed, SCDs confirmed to be functioning, preoperative antibiotics administered, beta- rain protocol confirmed. Prepped and draped in usual sterile fashion in dorsolithotomy position paying careful attention to avoiding pressure points. 21 Bulgarian cystoscope with 30 degree lens was introduced into the urethra meatus and advanced into the bladder under videoscopy. The bladder was systematically examined. Findings were consistent with that seen in clinic. Most of the lesions were on the posterior floor more toward the dome. The urethra was then calibrated with [place] sounds and easily accommodated 30 Bulgarian. 2% lidocaine jelly was instilled into the urethra. The 25 Bulgarian continuous-flow resectoscope sheath with visual obturator was advanced into the bladder without difficulty. The gyrus bipolar system was utilized with super loop first for resection and button probe for fulguration hemostatic control etc. All visible tumor was resected. Bladder was confirmed to be free of additional lesions. Hemostasis was excellent. Total diameter of resected/fulgurated area >5 cm. All chips were evacuated from the bladder. Bladder was drained with a 20 Bulgarian three-way Petit catheter with plug in the irrigation port. Tolerated procedure well without complications, was awakened in the operating room and returned to the recovery room in stable condition. PLANS: 1. Anticipate discharge tomorrow from observation status. 2. Mitomycin instillation postoperatively.
[2021-10-26] MEDS: levofloxacin-dextrose 5 % 500 MG/100 ML PREMIX 100 MG IV (07:07)
[2021-10-26] MEDS: lidocaine 2% Urojet 20 mL TOPICAL (07:35)
[2021-10-26] MEDS: fentaNYL 50 mcg/mL INJ 2mL IVP (08:37)
--- NOTE | 2021-10-26 08:53 | SUR.PHASEI ---
0813 PT TO PACU 5 AWAKES TO VOICE PT DENIES PAIN AND NAUSEA, VSS IV TO LT FOREARM #18 WITH NS 100 UP AT KVO, PT HAS A 3 WAY MUSA WITH CONTINOUS CBI INFUSING AT MOD RATE, URINE CLEAR PINK TINGED TO TUBING AND BAG, ONE TINY CLOT NOTED TO TUBING , FLOWS EASILY, AND DRAINS APPROPRIATELY, NO URETHRAL TENSION OR DRAINAGE NOTED . PT WITH BILAT SCDS ON AND WORKING. 0837 PT BP ELEVATED PT C/O OF URGENCY AND CRAMPING TO BRIGITTE AREA, SEE PAIN MED GIVEN 0855 PT MORE RELAXED SMILING TAKING OCC ICE CHIPS , DR SARAVIA AT BEDSIDE.
--- NOTE | 2021-10-26 10:18 | SUR.PHASEI ---
0915 PT MOVED TO OPS12 TO ROOM PT AWAKE ALERT, VSS MUSA PATENT OF CLEAR TO LT PINK URINE, PT OUT OF PHASE 1 NOW IN HOLDING WAITING FOR ROOM.
--- NOTE | 2021-10-26 12:17 | SUR.PHASEI ---
1217 PT UP IN BED TO EAT, PT AWAKE ALERT , C/O OF (IRRITATION) TO BLADDER AND URGENCY, REQUESTED PAIN MED SEE MED GIVEN, PT EATING WITH GOOD APPITITE, VSS.
[2021-10-26] MEDS: HYDROcodone-acetaminophen 5-325 mg Tablet 1 TAB PO (12:18)
--- NOTE | 2021-10-26 12:27 | SUR.PHASEI ---
MITOMYCIN GIVEN PER CATHETER TO BLADDER BY DR SARAVIA, MUSA PLUGGED AND WILL EMPTY IN ONE HOUR PER DR SARAVIA VERBAL ORDER AT BEDSIDE. PT AWAKE ALERT , TALKATIVE ATE 805 of lunch. PT STATES DISCOMFORT IS BETTER NOW AFTER PAIN MED GIVEN EARLIER.
--- NOTE | 2021-10-26 12:43 | PM.MISC ---
Miscellaneous Note Purpose of Documentation: Mitomycin instillation Note: Mitomycin 40 mg of 40 cc saline instilled slowly into the bladder under low pressure. Outflow ports plugged. Instructed nursing staff on no more than 1 hour indwelling and certainly sooner he can be drained if he becomes uncomfortable. Placed back to dependent drainage/CBI after drainage.
--- NOTE | 2021-10-26 12:49 | SUR.PHASEI ---
1227 MITOMYCIN 40MG GIVEN PER MUSA CATHETER PER DR SARAVIA. MUSA PLUGGED X [address] SARAVIA
--- NOTE | 2021-10-26 13:07 | SUR.PHASEI ---
PT CARE ASSUMED BY JOSE THOMPSON IN OPS.
--- NOTE | 2021-10-26 13:32 | ANE.PACU2 ---
Inpatient post-anesthesia follow up: Airway intact: Yes Vital signs: Temperature 97.4 F Pulse Rate 68 Respiratory Rate 20 Blood Pressure 137/72 Pulse Oximetry 94 Oxygen Delivery Me thod Nasal Cannula Oxygen Flow Rate 3 Fraction of Inspir ed Oxygen Hydration adequate: Yes Nausea and vomiting: No Pain level: 1 Mental status: Baseline
--- NOTE | 2021-10-26 13:35 | SUR.PHASEI ---
mitomycin instilled into patients bladder by dr sandoval. patient was very uncomfortable and at the 48 minute love for instillation so medication was drained from bladder. disposed urine inside waller bag into biohazard chemo bag, double bagged and disposed with biohazard material. patient tolerated well.
--- NOTE | 2021-10-26 14:26 | SUR.PHASEI ---
patient transported to room 277-2 on [facility]. patient awake and alert, on 3l o2 per home use. cbi connected and draining. scds in place. patient ambulated to floor bed from [facility]. nurse in room at transfer.
[2021-10-26] MEDS: atorvastatin 40 mg Tablet 20 MG PO (15:24)
[2021-10-26] MEDS: pantoprazole DR 40 mg Tablet PO (15:25)
[2021-10-26] MEDS: FUROsemide 40 mg Tablet PO (15:27)
[2021-10-26] MEDS: colchicine 0.6 mg Tablet PO (15:35)
[2021-10-26 20:20] LABS: Glucose Point of Care 191 mg/dL (70-110)
[2021-10-26] MEDS: budesonide 0.5 mg/2 mL Neb INHALATION (21:50)
[2021-10-27 00:18] VITALS: BP 144/70; PULSE 75; RESP 18; TEMP 36.9; O2SAT 94
[2021-10-27 05:29] VITALS: BP 126/69; PULSE 82; RESP 18; TEMP 37.1; O2SAT 97
--- NOTE | 2021-10-27 06:29 | PC.NURSE ---
Addendum entered by Patricia Stafford RN 10/27/21 06:32: Bhargav at bedside for patients pressure sores to bottom, patient stated, I've been getting pressure sores on my bottom and they hurt I tried diaper rash cream but isn't working. Original Note: Patient AAOx4, VSS, OOB to BSC multiple times throughout night, patient did not sleep much had difficult time getting comfortable. Good UOP, no new events over night, no needs at this time, room clutter free and clean with call light in reach.
--- NOTE | 2021-10-27 07:44 | PM.DCS ---
Discharge Providers Date of Admission: 10/26/21 13:54 Date of Discharge: October 27, 2021 Attending Provider at Admission: Kody Argueta MD Attending Provider at Discharge: Kody Argueta MD Primary Care Provider: Ronnie Carolina DO Reason for Visit Reason for Visit: bladder tumor Brief History: Historically he was diagnosed with metastatic bladder cancer about 10 or 12 years ago. Responded well to local therapy with radiation chemotherapy followed by Keytruda with excellent response. As of his last systemic evaluation with oncology there was no clear evidence of residual disease. He did start developing recent gross hematuria and a clinic cystoscopy revealed what appeared to be recurrence of TCC of the bladder. Admitted for TURBT. Hospital Course Hospital Course Admitted on the day of the procedure which went well. He had a large area of posterior bladder wall involvement with what appeared to be papillary TCCA. Lesions were extensively resected and then fulgurated for a diameter much >5 cm. Postoperatively he did well. MITOMYCIN was instilled into his bladder on the afternoon of his procedure holding it for 1 hour. Medication was drained and he was placed back to dependent drainage with light CBI. On postoperative day #1 his catheter was removed. He voided spontaneously with clearing Urines and low PVRs. Discharge on the afternoon of postoperative day #1. Pathology (verbal report): Muscle invasive high-grade disease. I do not think that this will change our perspective other than potentially restarting Keytruda. I will make sure a copy this gets to Dr. Green. Patient has been known to have metastatic bladder cancer for many years. He is not a candidate for further radiation. I do not think surgical extirpative therapy would make sense either. Reviewed this with the patient and his . Physical Exam Narrative: Alert, oriented, no acute distress No labored respiration Abdomen soft nontender Urine clearing No focal neurologic deficits Recovering well Urinary Catheter Management: 3-way Urethral CBI: Cath Placed During This Visit: yes Reason for Continuing Indwelling Catheter: Other Urinary Catheter Date of Insertion: 10/26/21 Urinary Catheter Time of Insertion: 07:52 Discharge Data Studies Completed and Pending Pending at discharge Category Date Time Status Pathology: Surgical [PTH] Routine Pth 10/26/21 08:16 Received Laboratory Results POC Glucose 191 mg/dL (70-110) H 10/26/21 17:32 Procedures Performed Cystoscopy, transurethral section of bladder tumor large Vitals Last Vital Signs Temp 98.7 F 10/27/21 05:29 Pulse 82 10/27/21 05:29 Resp 18 10/27/21 05:29 BP 126/69 10/27/21 05:29 Pulse Ox 97 10/27/21 05:29 Discharge Plan Discharge Patient Disposition: Home Condition: Stable Prescriptions: Continued metformin 1,000 mg tablet 1,000 mg PO BID 0RF rosuvastatin 5 mg tablet 5 mg PO DAILY 0RF omeprazole 20 mg capsule,delayed release(DR/EC) 20 mg PO DAILY 0RF levothyroxine 75 mcg capsule 75 mcg PO DAILY 0RF furosemide 40 mg tablet 40 mg PO BID 0RF Label Comments: 2tabs in AM, 1tab at night glipizide 10 mg tablet 10 mg PO DAILY 0RF budesonide [Pulmicort] 0.5 mg/2 mL suspension for nebulization 0.5 mg inhalation BID Qty: 60 3RF cyanocobalamin (vitamin B-12) 500 mcg tablet 500 mcg PO DAILY 0RF bisacodyl 5 mg tablet,delayed release (DR/EC) 5 mg PO BID 0RF albuterol sulfate 90 mcg/actuation Hfa Aerosol Inhaler See Rx Instructions .ROUTE .COMPLEX 0RF Rx Instructions: inhaled as directed colchicine 0.6 mg Tablet 0.6 mg PO DAILY 0RF docusate sodium 100 mg Tablet 200 mg PO BID 0RF magnesium 400 mg PO DAILY 0RF multivitamin 1 tab PO DAILY 0RF potassium 99 mg PO DAILY 0RF indomethacin 25 mg capsule 25 mg PO BID Qty: 30 1RF Rx Instructions: administer with food or milk; prn inflammatory changes in left leg metoprolol tartrate 25 mg tablet 25 mg PO DAILY 0RF Held Aspir-81 81 mg PO DAILY 0RF Hold Instructions: Resume on 11/03/21. Discharge Orders: Discharge Order (Routine); Ordered 10/27/21 Ordered By: Kody Argueta Referrals: Kody Argueta MD [Physician] - 2 months (Cystoscopy for surveillance Call next week for pathology review over the phone. ) Discharge Diet: Usual diet Discharge Activity: Limit activity as instructed Activity Restrictions/Additional Instructions: 1. I will see you back in my office in about 2 months for cystoscopy. 2. We will confirm with Dr. Green the pathology report. 3. Avoid any heavy lifting or straining for at least 3 to 4 weeks Discharge Attestations Time Spent in Discharge Care*: less than 30 min Quality Metrics Clinical Quality Measures [ No reported AMI, CVA or VTE this stay] Coding Level of Care Code Acute Chg FW DC note
[2021-10-27 07:49] VITALS: BP 173/78; PULSE 92; RESP 18; TEMP 36.4; O2SAT 91
[2021-10-27] MEDS: levothyroxine 75 mcg Tablet PO (07:57)
[2021-10-27] MEDS: metformin 500 mg Tablet 1000 MG PO (07:57)
[2021-10-27] MEDS: metoprolol tartrate 25 mg Tablet PO (07:57)
[2021-10-27] MEDS: atorvastatin 40 mg Tablet 20 MG PO (07:58)
[2021-10-27] MEDS: pantoprazole DR 40 mg Tablet PO (07:59)
[2021-10-27] MEDS: colchicine 0.6 mg Tablet PO (07:59)
[2021-10-27] MEDS: FUROsemide 40 mg Tablet PO (08:00)
[2021-10-27] MEDS: collagenase oint 30 gm 1 APPLIC TOPICAL (08:01)
[2021-10-27] MEDS: budesonide 0.5 mg/2 mL Neb INHALATION (09:07)
[2021-10-27 09:08] VITALS: PULSE 85; RESP 16; O2SAT 96
--- NOTE | 2021-10-27 10:59 | PC.CHAP ---
Pastoral Care Encounter/Spiritual Assessment Type of Contact [x] Declined dental laboratory supervisor visit [] Patient/Family/Request visit [] Outpatient visit [] Follow-up visit [] Physician referral [] Code/Alert [] Routine visit [] Staff referral [] Actively dying [] Patient sleeping [] Family support [] [] Out of room [] Palliative care [] [] Receiving care in room [] Pre-surgical visit [] Trauma [] Long length of stay [] ICU visit [] Other: Relational/Emotional Strength [] Patient feels connected with others/family/visitors/staff [] Distress [] Loneliness/isolation [] Abandonment Spirituality of Patient [] Person of Radha [] Attends Bahai of their Radha [] Believes in Prayer [] Reads Bible or Holiness materials [] There are Spiritual issues to be addressed Lead Quality Control Technician Interventions [] Prayer [] Active listening [] Non-anxious presence [] Spiritual/emotional support [] Crisis/trauma care [] Spiritual counseling [] Bereavement support [] Provided bereavement packet [] Provided Bible/devotional materials [] Provided toy/stuffed animal, coloring book to patient or family member [] Provided Communion [] Anointing/[place] [] Salvation [] Completed spiritual assessment [] Other: Impact on Illness or Injury [] Angry [] Fearful [] Anxious [] Often cries [] Exhaustion [] Unable to work [] Unable to attend jainism [] Unable to walk/stand [] Unable to read [] Unable to drive [] Unable to eat/drink [] Unable to sleep [] Unable to be with family [] Patient intubated [] Other: Summary Declined dental laboratory supervisor visit Time spent with patient 5 mins
[2021-10-27 11:25] VITALS: BP 102/62; PULSE 69; RESP 18; TEMP 36.6; O2SAT 92
--- NOTE | 2021-10-27 14:08 | PC.NURSE ---
patient and verbalized understanding of discharge instructions and home medications. follow up appointment was not made due to the urology clinics phone lines being down. relayed this information to the patient and , and they stated that they will call to make a follow up.
[2021-10-27 14:10] VITALS: BP 102/62; PULSE 69; RESP 18; TEMP 36.6; O2SAT 92
[2021-10-27 21:46] LABS: Glucose Point of Care 148 mg/dL (70-110)
== END 2021-10-27 14:41 | disposition home or self-care (01) ==
LOC: MEDSURG 13:57
PROVIDERS: Admitting Provider Urology; PCP Emergency Medicine Emergency Medical Services; Visit Provider Urology
PROC: 0TJB8ZZ Inspection of Bladder, Via Natural or Artificial Opening Endoscopic (ICD-10-PCS; CPT 52000; principal; 2021-10-26 07:00)
PROC: 0TBB8ZZ Excision of Bladder, Via Natural or Artificial Opening Endoscopic (ICD-10-PCS; CPT 52240; 2021-10-26 07:00)
DX: C67.9 Malignant neoplasm of bladder, unspecified (principal); J44.9 Chronic obstructive pulmonary disease, unspecified; Z99.81 Dependence on supplemental oxygen; I25.10 Atherosclerotic heart disease of native coronary artery without angina pectoris; Z95.5 Presence of coronary angioplasty implant and graft; I25.2 Old myocardial infarction; E11.40 Type 2 diabetes mellitus with diabetic neuropathy, unspecified; Z79.84 Long term (current) use of oral hypoglycemic drugs; Z87.891 Personal history of nicotine dependence
CPT/HCPCS: 52240; 36416; 82962; 88309; 93005; 94640; G0378; J1100; J1956; J2370; J2405; J2704; J3010; J7030; J7626; J9280

== ENCOUNTER → 2021-10-31 08:12 | Outpatient (BNVA) | payer OTHER, SELFPAY | PROVIDERS: PCP Emergency Medicine Emergency Medical Services; Visit Provider Thoracic Surgery (Cardiothoracic Vascular Surgery) | DX: E11.622 Type 2 diabetes mellitus with other skin ulcer (principal); L97.821 Non-pressure chronic ulcer of other part of left lower leg limited to breakdown of skin; I96 Gangrene, not elsewhere classified; Z87.891 Personal history of nicotine dependence | CPT/HCPCS: 97597 ==

== ENCOUNTER → 2021-11-03 13:58 | Outpatient (BNVA) | payer OTHER, SELFPAY | PROVIDERS: PCP Emergency Medicine Emergency Medical Services; Referring Provider Emergency Medicine Emergency Medical Services; Visit Provider Surgery | DX: R19.5 Other fecal abnormalities (principal); E11.622 Type 2 diabetes mellitus with other skin ulcer; L97.829 Non-pressure chronic ulcer of other part of left lower leg with unspecified severity | CPT/HCPCS: 29581; 99203; 99213 ==

== ENCOUNTER → 2021-11-07 08:49 | Outpatient (BNVA) | payer OTHER, SELFPAY | PROVIDERS: PCP Emergency Medicine Emergency Medical Services; Visit Provider Thoracic Surgery (Cardiothoracic Vascular Surgery) | DX: E11.622 Type 2 diabetes mellitus with other skin ulcer (principal); I96 Gangrene, not elsewhere classified; L97.821 Non-pressure chronic ulcer of other part of left lower leg limited to breakdown of skin; L97.811 Non-pressure chronic ulcer of other part of right lower leg limited to breakdown of skin; Z87.891 Personal history of nicotine dependence | CPT/HCPCS: 97597 ==

== ENCOUNTER 2021-11-09 09:25 | Outpatient (CLI) | payer OTHER, SELFPAY ==
--- NOTE | 2021-11-09 09:35 | USCV_ITS ---
Vishal Boswell Age: 76 Gender: M : 1945 Exam Date: 11/09/2021 10:53 Ordering Phys: Cl Stuart MD (And[email or web address] Technologist: EDUARDO [place] [facility] [place]: H[place]ORY: PROCEDURES: Venous duplex imaging was performed in only the left lower extremity. The following venous structures were evaluated: common femoral vein, profunda vein, proximal portion of the greater saphenous vein, superficial femoral vein, and the popliteal vein. Right duplex Venous Insufficiency study of the Deep and Superficial systems was carried out according to normal protocol with the patient in supine positon for deep system and dependent position for the superficial system. FINDINGS: No reflux see in LLE on today's exam The veins were found to be easily compressible with spontaneous blood flow. CONCLUSIONS No evidence of DVT in the above-mentioned identifiable veins. No significant venous reflux were noted either in the deep or superficial veins of the left lower extremity Dr Jordan Yousif MD FAC (Electronically Signed) Final Date: 10 November 2021 20:35 S
== END 2021-11-09 09:26 | disposition home or self-care (01) ==
LOC: RAD 09:27
PROVIDERS: PCP Emergency Medicine Emergency Medical Services; Visit Provider Thoracic Surgery (Cardiothoracic Vascular Surgery)
DX: E11.621 Type 2 diabetes mellitus with foot ulcer (principal); L97.529 Non-pressure chronic ulcer of other part of left foot with unspecified severity
CPT/HCPCS: 93971

== ENCOUNTER → 2021-11-14 08:46 | Outpatient (BNVA) | payer OTHER, SELFPAY | PROVIDERS: PCP Emergency Medicine Emergency Medical Services; Visit Provider Thoracic Surgery (Cardiothoracic Vascular Surgery) | DX: E11.622 Type 2 diabetes mellitus with other skin ulcer (principal); L97.811 Non-pressure chronic ulcer of other part of right lower leg limited to breakdown of skin; L97.321 Non-pressure chronic ulcer of left ankle limited to breakdown of skin; Z87.891 Personal history of nicotine dependence | CPT/HCPCS: 99212; A6212 ==

== ENCOUNTER 2021-11-15 08:52 | Outpatient (CLI) | payer OTHER, SELFPAY ==
--- NOTE | 2021-11-15 09:07 | USCV_ITS ---
Vishal Boswell Age: 76 Gender: M : 1945 Exam Date: 11/15/2021 09:20 Ordering Phys: Cl Stuart MD (Andy[email or web address] Technologist: MELVIN [place]am Location: [facility] [place] Indication: non healing wounds bilateral lower legs Risk Factors: dm Previous Vascular Surgery: NONE RIGHT LEFT BP: 129.0 / 83.00 BP: 115.0/ 71.00 0 0 Waveform Velocity (cm/s) Velocity (cm/s) Waveform Biphasic 158.5 Iliac Prox 102.5 Biphasic Biphasic 125.8 Iliac Mid 102.5 Biphasic Biphasic 150.7 Iliac Distal 99.4 Biphasic Biphasic 149.1 LINE PATROLMAN 90.1 Biphasic Biphasic 129.0 SFA Prox 85.4 Biphasic Biphasic SFA Mid Biphasic 90.1 119.6 Biphasic 94.8 SFA Dist 111.9 Biphasic Biphasic 107.2 POP 214.2 Biphasic Monophasic 99.4 CRACKING STILL OPERATOR 303.8 Monophasic Monophasic 65.3 DPA 71.7 Monophasic 0.8 ADRIEL 1.0 FINDINGS ? LT ADRIEL ARTIFICIALLY HIGH??? Mild to moderate diffuse plaques in the iliac and femoral arteries bilaterally Elevated velocity in the posterior tibial artery on the left side Resting ADRIEL of 0.8 on the right and 1.0 on the left CONCLUSIONS Abnormal resting ADRIEL of 0.8 on the right side, suggestive of mild peripheral artery disease Normal resting ADRIEL on the left side with elevated velocity in the posterior tibial artery may suggest hemodynamically significant stenosis Consider resting TBI and exercise ADRIEL to better evaluate the functional status, if clinically indicated. No similar previous studies are available for comparison Dr Jordan Yousif MD [facility] (Electronically Signed) Final Date: 20 Nov 2021 20:29 S
== END 2021-11-15 08:53 | disposition home or self-care (01) ==
LOC: RAD 08:53
PROVIDERS: PCP Emergency Medicine Emergency Medical Services; Visit Provider Thoracic Surgery (Cardiothoracic Vascular Surgery)
DX: E11.621 Type 2 diabetes mellitus with foot ulcer (principal); E13.51 Other specified diabetes mellitus with diabetic peripheral angiopathy without gangrene; R94.39 Abnormal result of other cardiovascular function study
CPT/HCPCS: 93926

== ENCOUNTER → 2021-11-21 09:17 | Outpatient (BNVA) | payer OTHER, SELFPAY | PROVIDERS: PCP Emergency Medicine Emergency Medical Services; Visit Provider Thoracic Surgery (Cardiothoracic Vascular Surgery) | DX: L97.828 Non-pressure chronic ulcer of other part of left lower leg with other specified severity (principal); Z87.891 Personal history of nicotine dependence | CPT/HCPCS: 99212 ==

== ENCOUNTER 2021-12-08 08:19 | Day surgery (SDC) | payer OTHER, SELFPAY ==
[2021-12-05 13:17] VITALS: BMI 27.2
--- NOTE | 2021-12-08 08:36 | P.HP_ITS ---
Same Day Surgery H&P Indication for Procedure/HPI DATE OF PROCEDURE: December 08, 2021 CHIEF COMPLAINT/INDICATIONFOR SURGICAL PROCEDURE: Blood in stool PREOP DIAGNOSIS: occult blood in stool PLANNED PROCEDURE: Operation Date: 12/08/21 10:00 Proposed Procedures p Colonoscopy 95773/k62.5(Not Applicable) - Aaron Gómez MD 11/03/2021 This is a pleasant 76 years old gentleman, comes today escorted by his and was found to have a blood positive in stool.? Patient is diagnosed with history of bladder cancer and he never had a colonoscopy before.? He denies history of colon cancer and reports no gross blood per stool. Recent CT scan of the abdomen pelvis did show 1.? No evidence for metastatic disease within the chest, abdomen or pelvis. 2.? Stable 7 mm noncalcified nodule RIGHT upper lobe. 3.? Mild bladder wall thickening and a posterior LEFT bladder diverticulum. No change. 4.? No ascites. No metastatic disease in the liver or adrenal glands. 5.? Cholelithiasis. 12/08/2021 Patient comes today for colonoscopy ROS All systems have been reviewed negative except as for the above or per problem list. Medications/Allergies* Home Medications Medication Instructions Recorded Confirmed Type levothyroxine 75 mcg capsule 75 mcg PO DAILY 10/21/19 12/05/21 History metformin 1,000 mg tablet 1,000 mg PO BID 10/21/19 12/05/21 History omeprazole 20 mg capsule,delayed 20 mg PO DAILY 10/21/19 12/05/21 History release rosuvastatin 5 mg tablet 5 mg PO DAILY 10/21/19 12/05/21 History Aspir-81 81 mg PO DAILY 01/25/21 12/08/21 History albuterol sulfate 90 mcg/actuation See Rx Instructions .ROUTE .COMPLEX 01/25/21 12/05/21 History aerosol inhaler docusate sodium 100 mg tablet 200 mg PO BID 01/25/21 12/05/21 History magnesium 400 mg PO DAILY 01/25/21 12/05/21 History multivitamin 1 tab PO DAILY 01/25/21 12/05/21 History potassium 99 mg PO DAILY 01/25/21 12/05/21 History furosemide 40 mg tablet 40 mg PO BID tab 03/16/21 12/05/21 History bisacodyl 5 mg tablet,delayed 5 mg PO BID tab 10/21/21 12/05/21 History release cyanocobalamin (vitamin B-12) 500 500 mcg PO DAILY 10/21/21 12/05/21 History mcg tablet glipizide 10 mg tablet 10 mg PO DAILY tab 10/21/21 12/05/21 History metoprolol tartrate 25 mg tablet 25 mg PO DAILY tab 10/21/21 12/05/21 History colchicine 0.6 mg tablet 0.6 mg PO DAILY 11/03/21 12/05/21 History Allergies/Adverse Reactions Allergy/AdvReac Type Severity Reaction Status Date / Time Sulfa (Sulfonamide Allergy Unknown Unknown Verified 12/08/21 08:38 Antibiotics) Pertinent History/Comorbid Conditions* Medical History (Updated 11/05/21 @ 16:16 by Aaron Gómez MD) COPD (chronic obstructive pulmonary disease) Diabetes mellitus Neuropathy Family History (Updated 10/21/21 @ 10:06 by Divya Maria LPN) Father, AT AGE 77 Mother, AT AGE 84 Diabetes Dementia Mother Cancer Mother Stroke Father Social History Smoking and tobacco status: never smoked Alcohol intake: never Marital status: 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
[2021-12-08 09:15] VITALS: BP 145/85; PULSE 88; RESP 20; TEMP 36.6; O2SAT 94
--- NOTE | 2021-12-08 09:33 | P.ANESASSM_ITS ---
Pre-Anesthetic Assessment Height/Weight: Height 1.78 m Weight 86.183 kg Temp Pulse Resp BP Pulse Ox 97.8 F 88 20 H 145/85 94 12/08/21 09:15 12/08/21 09:15 12/08/21 09:15 12/08/21 09:15 12/08/21 09:15 Preop Diagnosis: occult blood in stool Operation Date: 12/08/21 10:00 Proposed Procedures p Colonoscopy 72607/[id number](Not Applicable) - Aaron Gómez MD Familial anesthetic complications: none Last intake: Intake Last Liquid Date 12/07/21 Last Liquid Time 21:00 Last Solid Date 12/06/21 Last Solid Time 19:00 Social No alcohol and No tobacco Airway Submandibular: within normal limits Cervical ROM: within normal limits Mallampati: Class II Dentition: false Pulmonary Shortness of Breath home oxygen 3L CV/HEM Stable Angina (relieved with nitro.), Coronary Artery Disease, Hypertension and Myocardial Infarction (heart stents x2 (1992)) None reported Hepatic None reported GI Gastroesophageal Reflux Disease Metabolic Diabetes Mellitus, Hyperlipidemia and Thyroid Disease Musc/skel Weakness (uses maya) Neuropsych Cerebrovascular Accident (1992, ), Neuropathy and Transient Ischemic Attack (2 months prior) Anesthetic Plan ASA status: 3 Anesthesia: MAC Medications/Allergies Home Medications Medication Instructions Recorded Confirmed Last Taken Type levothyroxine 75 mcg capsule 75 mcg PO DAILY 10/21/19 12/05/21 12/08/21 History metformin 1,000 mg tablet 1,000 mg PO BID 10/21/19 12/05/21 12/07/21 History omeprazole 20 mg capsule,delayed 20 mg PO DAILY 10/21/19 12/05/21 12/07/21 History release rosuvastatin 5 mg tablet 5 mg PO DAILY 10/21/19 12/05/21 12/07/21 History Aspir-81 81 mg PO DAILY 01/25/21 12/08/21 11/21/21 History albuterol sulfate 90 mcg/actuation See Rx Instructions .ROUTE .COMPLEX 01/25/21 12/08/21 12/08/21 History aerosol inhaler docusate sodium 100 mg tablet 200 mg PO BID 01/25/21 12/05/21 12/07/21 History magnesium 400 mg PO DAILY 01/25/21 12/05/21 10/25/21 History multivitamin 1 tab PO DAILY 01/25/21 12/05/21 12/07/21 History potassium 99 mg PO DAILY 01/25/21 12/05/21 12/06/21 History budesonide 0.5 mg/2 mL suspension 0.5 mg (2 mL) INHALATION BID #60 ml 03/16/21 12/05/21 Unknown Rx for nebulization (Pulmicort) furosemide 40 mg tablet 40 mg PO BID tab 03/16/21 12/05/21 12/06/21 History bisacodyl 5 mg tablet,delayed 5 mg PO BID tab 10/21/21 12/05/21 12/07/21 History release cyanocobalamin (vitamin B-12) 500 500 mcg PO DAILY 10/21/21 12/05/21 12/07/21 History mcg tablet glipizide 10 mg tablet 10 mg PO DAILY tab 10/21/21 12/05/21 12/07/21 History metoprolol tartrate 25 mg tablet 25 mg PO DAILY tab 10/21/21 12/05/21 12/08/21 History colchicine 0.6 mg tablet 0.6 mg PO DAILY 11/03/21 12/05/21 12/07/21 History Allergies Allergy/AdvReac Type Severity Reaction Status Date / Time Sulfa (Sulfonamide Allergy Unknown Unknown Verified 12/08/21 08:38 Antibiotics) [facility] Anesthesia Medical History COPD (chronic obstructive pulmonary disease) Diabetes mellitus Neuropathy Family History Father , AT AGE 77 Stroke Mother , AT AGE 84 Cancer Dementia Other Diabetes Social History Smoking and tobacco status: never smoked Alcohol intake: never Marital status: service: Yes ( war) 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
[2021-12-08] MEDS: sodium chloride 0.9% 1,000 ML 30 ML IV (09:35)
[2021-12-08 10:27] VITALS: BP 97/65; PULSE 79; RESP 16; TEMP 36.1
[2021-12-08 10:51] VITALS: BP 116/71; PULSE 80; RESP 18; O2SAT 95
--- NOTE | 2021-12-08 13:40 | ANE.PACU2 ---
Inpatient post-anesthesia follow up: Airway intact: Yes Vital signs: Temperature 97 F Pulse Rate 80 Respiratory Rate 18 Blood Pressure 116/71 Pulse Oximetry 95 Oxygen Delivery Me thod Nasal Cannula Oxygen Flow Rate 2 Fraction of Inspir ed Oxygen Hydration adequate: Yes Nausea and vomiting: No Pain level: 1 Mental status: Baseline
== END 2021-12-08 11:12 | disposition home or self-care (01) ==
PROVIDERS: PCP Emergency Medicine Emergency Medical Services; Visit Provider Surgery
PROC: 0DJD8ZZ Inspection of Lower Intestinal Tract, Via Natural or Artificial Opening Endoscopic (ICD-10-PCS; CPT 45378; principal; 2021-12-08 10:00)
DX: K62.5 Hemorrhage of anus and rectum (principal); K57.30 Diverticulosis of large intestine without perforation or abscess without bleeding; I25.10 Atherosclerotic heart disease of native coronary artery without angina pectoris; I10 Essential (primary) hypertension; Z95.5 Presence of coronary angioplasty implant and graft; I25.2 Old myocardial infarction; K21.9 Gastro-esophageal reflux disease without esophagitis; E78.5 Hyperlipidemia, unspecified; Z86.73 Personal history of transient ischemic attack (TIA), and cerebral infarction without residual deficits; E11.40 Type 2 diabetes mellitus with diabetic neuropathy, unspecified; Z79.84 Long term (current) use of oral hypoglycemic drugs
CPT/HCPCS: 45378; J2704; J7030

== ENCOUNTER → 2021-12-22 14:58 | Outpatient (BNVA) | payer OTHER, SELFPAY | PROVIDERS: PCP Emergency Medicine Emergency Medical Services; Visit Provider Surgery | DX: R19.5 Other fecal abnormalities (principal); K57.31 Diverticulosis of large intestine without perforation or abscess with bleeding | CPT/HCPCS: 99212 ==

== ENCOUNTER 2021-12-28 09:43 | Oncology outpatient (recurring) (ONCR) | payer OTHER, SELFPAY | END 2021-12-28 23:59 | disposition home or self-care (01) | PROVIDERS: PCP Emergency Medicine Emergency Medical Services; Visit Provider Nurse Practitioner | DX: C67.4 Malignant neoplasm of posterior wall of bladder (principal) | CPT/HCPCS: 99215 ==

== ENCOUNTER 2022-01-11 08:20 | Oncology outpatient (recurring) (ONCR) | payer OTHER, SELFPAY ==
[2022-01-11 08:49] VITALS: BMI 26.6
[2022-01-11 09:04] LABS: Basophils % 0.7 %; Eosinophils # 0.3 10^3/uL (0.0-0.8); Eosinophils % 6.2 %; Hematocrit 39.7 % (42.0-52.0); Hemoglobin 12.6 g/dL (11.7-16.6); Lymphocytes # 0.8 10^3/uL (0.8-4.8); Mean Corpuscular HGB Conc 31.7 g/dL (30.0-36.0); Mean Corpuscular Hemoglobin 29.9 pg (28.0-34.0); Mean Corpuscular Volume 94.3 fl (80-94); Mean Platelet Volume 9.6 fL (7.4-10.4); Monocytes # 0.5 10^3/uL (0.2-0.9); Monocytes % 10.7 %; Neutrophils # 2.59 10^3/uL (1.8-7.7); Neutrophils % 61.9 %; Nucleated Red Blood Cells % 0 %; Platelet Count 171 10^3/cmm (130-400); Red Blood Count 4.21 10^6/uL (4.1-5.3); Red Cell Distribution Width 14.2 % (12.1-15.1); White Blood Count 4.2 10^3/uL (4.0-10.0)
[2022-01-11 09:32] LABS: Alanine Aminotransferase 13 U/L (0-41); Alkaline Phosphatase 77 IU/L (40-130); Anion Gap 13.6 (5-19); Aspartate Amino Transferase 15 U/L (0-40); Blood Urea Nitrogen 29 mg/dL (8-23); Calcium 9.4 mg/dL (8.5-10.5); Carbon Dioxide 33 mmol/L (22-29); Chloride 95 mmol/L (98-107); Globulin 3.5 g/dL (1.3-4.6); Glucose 135 mg/dL (65-115); Osmolality Calculated 292 mOsm/kg (285-295); Potassium 4.6 mmol/L (3.5-5.1); Sodium 137 mmol/L (136-145); Total Bilirubin 0.2 mg/dL (0.15-1.2); Total Protein 7.5 g/dL (6.6-8.7)
[2022-01-11] MEDS: sodium chloride 0.9% 250 ML 100 ML IV (11:01)
[2022-01-11] MEDS: nivolumab 240 MG in sodium chloride 0.9% 250 ML 548 MG IV (11:19)
[2022-01-11 12:05] VITALS: BP 128/67; PULSE 65; RESP 16; TEMP 36.1; O2SAT 97
== END 2022-01-19 23:59 | disposition home or self-care (01) ==
PROVIDERS: Nurse Practitioner Family; PCP Emergency Medicine Emergency Medical Services; Visit Provider Nurse Practitioner
DX: Z51.11 Encounter for antineoplastic chemotherapy (principal); C67.4 Malignant neoplasm of posterior wall of bladder
CPT/HCPCS: 80053; 85025; 96360; 96413; 99214; J7050; J9299

== ENCOUNTER 2022-02-08 09:30 | Oncology outpatient (recurring) (ONCR) | payer OTHER, SELFPAY ==
[2022-01-25 09:30] VITALS: BMI 26.6
[2022-01-25 10:06] LABS: Basophils % 0.2 %; Eosinophils % 0.7 %; Hematocrit 37.3 % (42.0-52.0); Hemoglobin 11.8 g/dL (11.7-16.6); Lymphocytes # 0.8 10^3/uL (0.8-4.8); Lymphocytes % 18.3 %; Mean Corpuscular HGB Conc 31.6 g/dL (30.0-36.0); Mean Corpuscular Hemoglobin 30.1 pg (28.0-34.0); Mean Corpuscular Volume 95.2 fl (80-94); Mean Platelet Volume 9.8 fL (7.4-10.4); Monocytes # 0.6 10^3/uL (0.2-0.9); Monocytes % 12.8 %; Neutrophils # 2.95 10^3/uL (1.8-7.7); Neutrophils % 67.5 %; Nucleated Red Blood Cells % 0 %; Platelet Count 156 10^3/cmm (130-400); Red Blood Count 3.92 10^6/uL (4.1-5.3); Red Cell Distribution Width 14.5 % (12.1-15.1); White Blood Count 4.4 10^3/uL (4.0-10.0)
[2022-01-25 10:19] LABS: Alanine Aminotransferase 13 U/L (0-41); Albumin Level 3.6 g/dL (3.5-5.2); Alkaline Phosphatase 76 IU/L (40-130); Blood Urea Nitrogen 30 mg/dL (8-23); Calcium 9.6 mg/dL (8.5-10.5); Carbon Dioxide 31 mmol/L (22-29); Chloride 94 mmol/L (98-107); Globulin 3.6 g/dL (1.3-4.6); Glucose 118 mg/dL (65-115); Osmolality Calculated 291 mOsm/kg (285-295); Sodium 137 mmol/L (136-145); Thyroid Stimulating Hormone 2.15 uIU/mL (0.27-4.20); Total Bilirubin 0.2 mg/dL (0.15-1.2); Total Protein 7.2 g/dL (6.6-8.7)
[2022-01-25 10:20] LABS: Anion Gap 16.5 (5-19); Potassium 4.5 mmol/L (3.5-5.1)
[2022-01-25 10:21] LABS: Aspartate Amino Transferase 18 U/L (0-40)
[2022-01-25] MEDS: sodium chloride 0.9% 250 ML 75 ML IV (12:19)
[2022-01-25] MEDS: nivolumab 240 MG in sodium chloride 0.9% 250 ML 548 MG IV (12:25)
[2022-01-25 13:11] LABS: Urine Appearance Clear (CLEAR); Urine Color Straw (Yellow); pH Urine 5 (5-7)
[2022-01-25 13:12] LABS: Add Urine Culture? Yes; Add Urine Microscopic? YES; Bacteria Urine 2+ /hpf; Bilirubin Urine Neg (Negative); Blood Urine 3+ (Negative); Glucose Urine UA Norm (Normal); Ketones Urine Negative (Negative); Leukocyte Esterase Urine 2+ (Negative); Nitrate Urine Negative (Negative); Protein Urine Neg (Negative); RBC Urine TOO NUMEROUS TO CNT /hpf (0-2); Squamous Epithelial Cell Urine 0-4 /hpf (0-5); Urobilinogen Urine Norm (Negative); WBC Urine TOO NUMEROUS TO CNT /hpf (0-5)
[2022-01-25 13:27] VITALS: BP 119/70; PULSE 64; RESP 20; TEMP 36.2; O2SAT 96
[2022-02-08 09:56] LABS: Basophils % 0.4 %; Eosinophils % 0.2 %; Hematocrit 38.9 % (42.0-52.0); Hemoglobin 12.1 g/dL (11.7-16.6); Mean Corpuscular HGB Conc 31.1 g/dL (30.0-36.0); Mean Corpuscular Hemoglobin 30.4 pg (28.0-34.0); Mean Corpuscular Volume 97.7 fl (80-94); Mean Platelet Volume 9.4 fL (7.4-10.4); Monocytes # 0.5 10^3/uL (0.2-0.9); Monocytes % 9.7 %; Neutrophils # 3.32 10^3/uL (1.8-7.7); Neutrophils % 68.3 %; Nucleated Red Blood Cells % 0 %; Platelet Count 149 10^3/cmm (130-400); Red Blood Count 3.98 10^6/uL (4.1-5.3); Red Cell Distribution Width 14.6 % (12.1-15.1); White Blood Count 4.9 10^3/uL (4.0-10.0)
[2022-02-08 10:42] LABS: Alanine Aminotransferase 13 U/L (0-41); Albumin Level 4.3 g/dL (3.5-5.2); Alkaline Phosphatase 62 IU/L (40-130); Anion Gap 14.4 (5-19); Aspartate Amino Transferase 14 U/L (0-40); Blood Urea Nitrogen 23 mg/dL (8-23); Calcium 9.7 mg/dL (8.5-10.5); Carbon Dioxide 33 mmol/L (22-29); Chloride 94 mmol/L (98-107); Globulin 2.7 g/dL (1.3-4.6); Glucose 133 mg/dL (65-115); Osmolality Calculated 290 mOsm/kg (285-295); Potassium 4.4 mmol/L (3.5-5.1); Sodium 137 mmol/L (136-145); Total Bilirubin 0.2 mg/dL (0.15-1.2)
[2022-02-08 10:53] LABS: Bilirubin Urine Neg (Negative); Blood Urine Neg (Negative); Glucose Urine UA Norm (Normal); Ketones Urine Negative (Negative); Leukocyte Esterase Urine 2+ (Negative); Nitrate Urine Negative (Negative); Protein Urine 1+ (Negative); Specific Gravity, Urine 1.015 (1.005-1.030); Urine Appearance Hazy (CLEAR); Urine Color Yellow (Yellow); Urobilinogen Urine Norm (Negative); pH Urine 5 (5-7)
[2022-02-08 10:54] LABS: Add Urine Culture? No; Hyaline Casts Urine 0-4 /lpf; RBC Urine 0-4 /hpf (0-2); Squamous Epithelial Cell Urine 0-4 /hpf (0-5); WBC Urine TOO NUMEROUS TO CNT /hpf (0-5)
[2022-02-08 13:50] VITALS: BP 131/66; PULSE 51; RESP 16; TEMP 36.5; O2SAT 93
== END 2022-02-19 23:59 | disposition home or self-care (01) ==
PROVIDERS: Internal Medicine Medical Oncology; Nurse Practitioner Family; Urology; PCP Emergency Medicine Emergency Medical Services; Visit Provider Nurse Practitioner
DX: Z51.12 Encounter for antineoplastic immunotherapy (principal); C67.4 Malignant neoplasm of posterior wall of bladder; R53.82 Chronic fatigue, unspecified; E03.9 Hypothyroidism, unspecified; Z79.899 Other long term (current) drug therapy; Z87.891 Personal history of nicotine dependence
CPT/HCPCS: 80053; 81001; 81003; 84443; 85025; 87077; 87086; 87186; 96413; 99214; 99215; J7050; J9299

== ENCOUNTER → 2022-03-16 08:31 | Outpatient (BNVA) | payer OTHER, SELFPAY | PROVIDERS: PCP Emergency Medicine Emergency Medical Services; Visit Provider Internal Medicine Pulmonary Disease | DX: J43.2 Centrilobular emphysema (principal); R91.1 Solitary pulmonary nodule; C67.4 Malignant neoplasm of posterior wall of bladder; Z99.81 Dependence on supplemental oxygen; Z87.891 Personal history of nicotine dependence; Z92.21 Personal history of antineoplastic chemotherapy | CPT/HCPCS: 99214 ==

== ENCOUNTER 2022-03-22 11:30 | Oncology outpatient (recurring) (ONCR) | payer OTHER, SELFPAY ==
[2022-02-22 09:25] VITALS: BMI 27.1
[2022-02-22] MEDS: nivolumab 240 MG in sodium chloride 0.9% 250 ML 548 MG IV (09:45)
[2022-02-22 09:47] LABS: Urine Appearance Hazy (CLEAR); Urine Color Yellow (Yellow)
[2022-02-22 09:48] LABS: Add Urine Microscopic? YES; Bilirubin Urine Neg (Negative); Blood Urine 3+ (Negative); Glucose Urine UA Norm (Normal); Ketones Urine Negative (Negative); Leukocyte Esterase Urine 2+ (Negative); Nitrate Urine Negative (Negative); Protein Urine 1+ (Negative); Urobilinogen Urine Norm (Negative); pH Urine 5 (5-7)
[2022-02-22 09:49] LABS: RBC Urine >100 /hpf (0-2); WBC Urine TOO NUMEROUS TO CNT /hpf (0-5)
[2022-02-22 09:51] LABS: Add Urine Culture? Yes; Bacteria Urine 1+ /hpf
[2022-02-22 11:30] VITALS: BP 122/74; PULSE 77; RESP 18; TEMP 36.6; O2SAT 98
[2022-03-08 09:55] VITALS: BMI 26.6
[2022-03-08 10:12] LABS: Basophils % 0.7 %; Eosinophils # 0.1 10^3/uL (0.0-0.8); Eosinophils % 2.6 %; Hematocrit 42.7 % (42.0-52.0); Hemoglobin 13.1 g/dL (11.7-16.6); Lymphocytes # 1.2 10^3/uL (0.8-4.8); Lymphocytes % 27.8 %; Mean Corpuscular HGB Conc 30.7 g/dL (30.0-36.0); Mean Corpuscular Hemoglobin 30.1 pg (28.0-34.0); Mean Corpuscular Volume 98.2 fl (80-94); Mean Platelet Volume 9.5 fL (7.4-10.4); Monocytes # 0.5 10^3/uL (0.2-0.9); Monocytes % 11.9 %; Neutrophils # 2.43 10^3/uL (1.8-7.7); Neutrophils % 56.8 %; Nucleated Red Blood Cells % 0 %; Platelet Count 147 10^3/cmm (130-400); Red Blood Count 4.35 10^6/uL (4.1-5.3); Red Cell Distribution Width 14.3 % (12.1-15.1); White Blood Count 4.3 10^3/uL (4.0-10.0)
[2022-03-08 10:36] LABS: Alanine Aminotransferase 13 U/L (0-41); Albumin Level 3.9 g/dL (3.5-5.2); Alkaline Phosphatase 51 U/L (40-130); Anion Gap 10.6 (5-19); Aspartate Amino Transferase 19 U/L (0-40); Blood Urea Nitrogen 23 mg/dL (8-23); Calcium 9.4 mg/dL (8.5-10.5); Carbon Dioxide 35 mmol/L (22-29); Chloride 101 mmol/L (98-107); Globulin 3.3 g/dL (1.3-4.6); Glucose 117 mg/dL (65-115); Osmolality Calculated 299 mOsm/kg (285-295); Potassium 4.6 mmol/L (3.5-5.1); Sodium 142 mmol/L (136-145); Total Bilirubin 0.2 mg/dL (0.15-1.2); Total Protein 7.2 g/dL (6.6-8.7)
[2022-03-08 11:30] LABS: Thyroid Stimulating Hormone 2.13 uIU/mL (0.27-4.20)
[2022-03-08] MEDS: sodium chloride 0.9% 250 ML 75 ML IV (12:23)
[2022-03-08] MEDS: nivolumab 240 MG in sodium chloride 0.9% 250 ML 548 MG IV (12:24)
[2022-03-08 13:17] VITALS: BP 137/78; PULSE 66; RESP 18; TEMP 36.1; O2SAT 94
[2022-03-22 11:44] LABS: Basophils % 0.8 %; Eosinophils # 0.2 10^3/uL (0.0-0.8); Eosinophils % 4.8 %; Hematocrit 41.5 % (42.0-52.0); Lymphocytes % 25.7 %; Mean Corpuscular HGB Conc 31.3 g/dL (30.0-36.0); Mean Corpuscular Hemoglobin 30.7 pg (28.0-34.0); Mean Corpuscular Volume 98.1 fl (80-94); Mean Platelet Volume 9.6 fL (7.4-10.4); Monocytes # 0.5 10^3/uL (0.2-0.9); Monocytes % 13.1 %; Neutrophils % 55.3 %; Nucleated Red Blood Cells % 0 %; Platelet Count 131 10^3/cmm (130-400); Red Blood Count 4.23 10^6/uL (4.1-5.3); Red Cell Distribution Width 14.5 % (12.1-15.1)
[2022-03-22 12:13] LABS: Alanine Aminotransferase 12 U/L (0-41); Albumin Level 4.2 g/dL (3.5-5.2); Alkaline Phosphatase 54 U/L (40-130); Anion Gap 13.3 (5-19); Aspartate Amino Transferase 18 U/L (0-40); Blood Urea Nitrogen 24 mg/dL (8-23); Calcium 9.8 mg/dL (8.5-10.5); Carbon Dioxide 32 mmol/L (22-29); Chloride 100 mmol/L (98-107); Globulin 3.1 g/dL (1.3-4.6); Glucose 66 mg/dL (65-115); Osmolality Calculated 294 mOsm/kg (285-295); Potassium 4.3 mmol/L (3.5-5.1); Sodium 141 mmol/L (136-145); Thyroid Stimulating Hormone 2.05 uIU/mL (0.27-4.20); Total Bilirubin 0.2 mg/dL (0.15-1.2); Total Protein 7.3 g/dL (6.6-8.7)
[2022-03-22] MEDS: nivolumab 240 MG in sodium chloride 0.9% 250 ML 548 MG IV (13:55)
[2022-03-22 14:36] VITALS: BP 135/71; PULSE 62; RESP 16; TEMP 36.2; O2SAT 98
== END 2022-03-22 23:59 | disposition home or self-care (01) ==
PROVIDERS: Internal Medicine Medical Oncology; Nurse Practitioner; PCP Emergency Medicine Emergency Medical Services; Visit Provider Nurse Practitioner Family
DX: C67.4 Malignant neoplasm of posterior wall of bladder; R31.0 Gross hematuria; Z51.12 Encounter for antineoplastic immunotherapy; Z79.899 Other long term (current) drug therapy; Z87.891 Personal history of nicotine dependence; R53.83 Other fatigue
CPT/HCPCS: 80053; 81001; 84443; 85025; 87086; 96413; 99214; 99215; J7050; J9299

== ENCOUNTER 2022-04-19 09:30 | Oncology outpatient (recurring) (ONCR) | payer OTHER, SELFPAY ==
[2022-04-05 12:51] LABS: Basophils % 0.9 %; Eosinophils # 0.3 10^3/uL (0.0-0.8); Eosinophils % 5.8 %; Hematocrit 43.9 % (42.0-52.0); Hemoglobin 13.5 g/dL (11.7-16.6); Lymphocytes % 22.9 %; Mean Corpuscular HGB Conc 30.8 g/dL (30.0-36.0); Mean Corpuscular Hemoglobin 30.3 pg (28.0-34.0); Mean Corpuscular Volume 98.4 fl (80-94); Mean Platelet Volume 9.7 fL (7.4-10.4); Monocytes # 0.6 10^3/uL (0.2-0.9); Monocytes % 12.6 %; Neutrophils # 2.56 10^3/uL (1.8-7.7); Neutrophils % 57.6 %; Nucleated Red Blood Cells % 0 %; Platelet Count 153 10^3/cmm (130-400); Red Blood Count 4.46 10^6/uL (4.1-5.3); Red Cell Distribution Width 14.3 % (12.1-15.1); White Blood Count 4.5 10^3/uL (4.0-10.0)
[2022-04-05 13:26] LABS: Alkaline Phosphatase 60 U/L (40-130); Blood Urea Nitrogen 25 mg/dL (8-23); Calcium 10.2 mg/dL (8.5-10.5); Carbon Dioxide 31 mmol/L (22-29); Chloride 98 mmol/L (98-107); Globulin 3.1 g/dL (1.3-4.6); Glucose 107 mg/dL (65-115); Osmolality Calculated 299 mOsm/kg (285-295); Sodium 142 mmol/L (136-145); Thyroid Stimulating Hormone 2.29 uIU/mL (0.27-4.20); Total Bilirubin 0.2 mg/dL (0.15-1.2); Total Protein 7.1 g/dL (6.6-8.7)
[2022-04-05 13:27] LABS: Alanine Aminotransferase 12 U/L (0-41); Anion Gap 17.5 (5-19); Potassium 4.5 mmol/L (3.5-5.1)
[2022-04-05 13:34] LABS: Aspartate Amino Transferase 5 U/L (0-40)
[2022-04-05] MEDS: nivolumab 240 MG in sodium chloride 0.9% 250 ML 548 MG IV (13:48)
[2022-04-19 09:50] LABS: Basophils % 0.8 %; Eosinophils # 0.3 10^3/uL (0.0-0.8); Eosinophils % 5.7 %; Hematocrit 43.3 % (42.0-52.0); Hemoglobin 13.5 g/dL (11.7-16.6); Lymphocytes # 1.7 10^3/uL (0.8-4.8); Lymphocytes % 33.4 %; Mean Corpuscular HGB Conc 31.2 g/dL (30.0-36.0); Mean Corpuscular Hemoglobin 30.2 pg (28.0-34.0); Mean Corpuscular Volume 96.9 fl (80-94); Mean Platelet Volume 9.4 fL (7.4-10.4); Monocytes # 0.5 10^3/uL (0.2-0.9); Monocytes % 9.3 %; Neutrophils # 2.56 10^3/uL (1.8-7.7); Neutrophils % 50.6 %; Nucleated Red Blood Cells % 0 %; Platelet Count 166 10^3/cmm (130-400); Red Blood Count 4.47 10^6/uL (4.1-5.3); Red Cell Distribution Width 14.1 % (12.1-15.1); White Blood Count 5.1 10^3/uL (4.0-10.0)
[2022-04-19 10:21] LABS: Albumin Level 4.2 g/dL (3.5-5.2); Alkaline Phosphatase 52 U/L (40-130); Blood Urea Nitrogen 19 mg/dL (8-23); Calcium 10.2 mg/dL (8.5-10.5); Carbon Dioxide 32 mmol/L (22-29); Chloride 95 mmol/L (98-107); Globulin 3.2 g/dL (1.3-4.6); Glucose 49 mg/dL (65-115); Immunoglobulin IGG 1088 mg/dL (700-1600); Osmolality Calculated 288 mOsm/kg (285-295); Sodium 139 mmol/L (136-145); Thyroid Stimulating Hormone 3.45 uIU/mL (0.27-4.20); Total Bilirubin 0.3 mg/dL (0.15-1.2); Total Protein 7.4 g/dL (6.6-8.7)
[2022-04-19 10:28] LABS: Alanine Aminotransferase 15 U/L (0-41); Aspartate Amino Transferase 29 U/L (0-40)
[2022-04-19 10:46] LABS: Hepatitis A Antibody IgM Non-Reactive (Nonreactive); Hepatitis B Core AB, Total Non-Reactive (Nonreactive); Hepatitis B Surface AB 3.5 (11.5-1000); Hepatitis B Surface Antigen Non-Reactive (Nonreactive); Hepatitis C Virus Antibody Non-Reactive (Nonreactive)
[2022-04-19] MEDS: sodium chloride 0.9% 250 ML 100 ML IV (11:55)
[2022-04-19] MEDS: nivolumab 240 MG in sodium chloride 0.9% 250 ML 548 MG IV (12:22)
[2022-04-19 13:22] VITALS: BP 139/77; PULSE 67; RESP 16; TEMP 36.8; O2SAT 94
[2022-04-19 14:20] LABS: Estmated Average Glucose 108; Hemoglobin A1C 5.4 % (4.0-6.0)
== END 2022-04-21 23:59 | disposition home or self-care (01) ==
PROVIDERS: Nurse Practitioner; PCP Emergency Medicine Emergency Medical Services; Visit Provider Internal Medicine Medical Oncology
DX: Z51.12 Encounter for antineoplastic immunotherapy (principal); C67.4 Malignant neoplasm of posterior wall of bladder; R31.0 Gross hematuria; Z87.891 Personal history of nicotine dependence; Z92.3 Personal history of irradiation; E11.649 Type 2 diabetes mellitus with hypoglycemia without coma; Z79.84 Long term (current) use of oral hypoglycemic drugs; Z79.899 Other long term (current) drug therapy
CPT/HCPCS: 36415; 80053; 82784; 83036; 84443; 85025; 86705; 86706; 86709; 86803; 87340; 96413; 99213; 99214; J7050; J9299

== ENCOUNTER 2022-04-25 12:50 | Outpatient (CLI) | payer OTHER, SELFPAY ==
--- NOTE | 2022-04-25 14:17 | PFTS_ITS ---
Date of Study:04/25/22 Date of Dictation: MECHANICS: Forced vital capacity (FVC) is reduced. Forced expiratory volume in one second (FEV1) is reduced. FEV1/FVC is reduced. FLOW VOLUME LOOP: Reduced flow at all lung volumes with significant scooping. LUNG VOLUMES: Total lung capacity (TLC) is increased. Residual volume (RV) is increased. DIFFUSING CAPACITY FOR CARBON MONOXIDE: Moderately reduced. INTERPRETATION: The postbronchodilator spirometry is consistent with moderate airflow obstruction. There is a significant postbronchodilator response. The lung volumes are consistent with hyperinflation and air trapping. Gas exchange (DLCO) is moderately reduced. MTDD
== END 2022-04-25 12:51 | disposition home or self-care (01) ==
LOC: RT 12:51
PROVIDERS: PCP Emergency Medicine Emergency Medical Services; Visit Provider Internal Medicine Pulmonary Disease
DX: J44.9 Chronic obstructive pulmonary disease, unspecified (principal); R91.1 Solitary pulmonary nodule
CPT/HCPCS: 94060; 94618; 94726; 94729; J7611

== ENCOUNTER → 2022-05-12 11:40 | Outpatient (BNVA) | payer OTHER, SELFPAY | PROVIDERS: PCP Emergency Medicine Emergency Medical Services; Visit Provider Urology | DX: C67.4 Malignant neoplasm of posterior wall of bladder (principal); C79.51 Secondary malignant neoplasm of bone | CPT/HCPCS: 52000; 81003 ==

== ENCOUNTER 2022-05-17 08:14 | Oncology outpatient (recurring) (ONCR) | payer OTHER, SELFPAY ==
[2022-05-17 09:01] LABS: Basophils % 0.6 %; Eosinophils # 0.3 10^3/uL (0.0-0.8); Eosinophils % 7.8 %; Hematocrit 39.4 % (42.0-52.0); Hemoglobin 12.4 g/dL (11.7-16.6); Lymphocytes # 0.8 10^3/uL (0.8-4.8); Lymphocytes % 24.9 %; Mean Corpuscular HGB Conc 31.5 g/dL (30.0-36.0); Mean Corpuscular Hemoglobin 30.5 pg (28.0-34.0); Mean Platelet Volume 9.6 fL (7.4-10.4); Monocytes # 0.5 10^3/uL (0.2-0.9); Monocytes % 14.3 %; Neutrophils # 1.66 10^3/uL (1.8-7.7); Neutrophils % 51.8 %; Nucleated Red Blood Cells % 0 %; Platelet Count 145 10^3/cmm (130-400); Red Blood Count 4.06 10^6/uL (4.1-5.3); Red Cell Distribution Width 13.9 % (12.1-15.1); White Blood Count 3.2 10^3/uL (4.0-10.0)
[2022-05-17 10:27] LABS: Alanine Aminotransferase 13 U/L (0-41); Alkaline Phosphatase 53 U/L (40-130); Anion Gap 12.9 (5-19); Aspartate Amino Transferase 15 U/L (0-40); Blood Urea Nitrogen 25 mg/dL (8-23); Calcium 9.7 mg/dL (8.5-10.5); Carbon Dioxide 32 mmol/L (22-29); Chloride 98 mmol/L (98-107); Globulin 2.6 g/dL (1.3-4.6); Glucose 134 mg/dL (65-115); Osmolality Calculated 294 mOsm/kg (285-295); Potassium 3.9 mmol/L (3.5-5.1); Sodium 139 mmol/L (136-145); Thyroid Stimulating Hormone 2.52 uIU/mL (0.27-4.20); Total Bilirubin 0.2 mg/dL (0.15-1.2); Total Protein 6.6 g/dL (6.6-8.7)
[2022-05-17] MEDS: nivolumab 240 MG in sodium chloride 0.9% 250 ML 548 MG IV (11:09)
[2022-05-17 11:51] VITALS: BP 133/79; PULSE 67; RESP 16; TEMP 37; O2SAT 92
== END 2022-05-22 23:59 | disposition home or self-care (01) ==
PROVIDERS: PCP Emergency Medicine Emergency Medical Services; Visit Provider Internal Medicine Medical Oncology
DX: Z51.12 Encounter for antineoplastic immunotherapy (principal); C67.4 Malignant neoplasm of posterior wall of bladder; E03.9 Hypothyroidism, unspecified
CPT/HCPCS: 80053; 84443; 85025; 96413; 99214; J7050; J9299

== ENCOUNTER 2022-06-14 08:30 | Oncology outpatient (recurring) (ONCR) | payer OTHER, SELFPAY ==
[2022-05-31 09:22] LABS: Basophils % 0.6 %; Eosinophils # 0.4 10^3/uL (0.0-0.8); Mean Corpuscular Volume 97.9 fl (80-94); Monocytes # 0.5 10^3/uL (0.2-0.9); Nucleated Red Blood Cells % 0 %; White Blood Count 4.7 10^3/uL (4.0-10.0)
[2022-05-31 09:54] LABS: Alanine Aminotransferase 14 U/L (0-41); Alkaline Phosphatase 61 U/L (40-130); Aspartate Amino Transferase 15 U/L (0-40); Blood Urea Nitrogen 26 mg/dL (8-23); Calcium 9.8 mg/dL (8.5-10.5); Carbon Dioxide 35 mmol/L (22-29); Chloride 96 mmol/L (98-107); Globulin 3.1 g/dL (1.3-4.6); Glucose 135 mg/dL (65-115); Osmolality Calculated 299 mOsm/kg (285-295); Sodium 141 mmol/L (136-145); Thyroid Stimulating Hormone 1.72 uIU/mL (0.27-4.20); Total Bilirubin 0.2 mg/dL (0.15-1.2); Total Protein 7.1 g/dL (6.6-8.7)
[2022-05-31 10:04] LABS: Anion Gap 14.4 (5-19); Potassium 4.4 mmol/L (3.5-5.1)
[2022-05-31 10:38] LABS: Hematocrit 42.2 % (42.0-52.0); Mean Corpuscular HGB Conc 30.8 g/dL (30.0-36.0); Mean Corpuscular Hemoglobin 30.2 pg (28.0-34.0); Mean Platelet Volume 9.8 fL (7.4-10.4); Neutrophils % 58.1 %; Platelet Count 129 10^3/cmm (130-400); Red Blood Count 4.31 10^6/uL (4.1-5.3); Red Cell Distribution Width 13.7 % (12.1-15.1)
[2022-05-31 10:39] LABS: Eosinophils % 8.2 %; Lymphocytes % 21.7 %; Monocytes % 11.2 %; Neutrophils # 2.75 10^3/uL (1.8-7.7)
[2022-05-31] MEDS: nivolumab 240 MG in sodium chloride 0.9% 250 ML 548 MG IV (10:58)
[2022-05-31 11:42] VITALS: BP 144/78; PULSE 82; RESP 16; TEMP 36.4; O2SAT 97
[2022-06-14 08:54] LABS: Basophils % 0.8 %; Eosinophils # 0.4 10^3/uL (0.0-0.8); Eosinophils % 9.8 %; Hematocrit 40.6 % (42.0-52.0); Hemoglobin 12.6 g/dL (11.7-16.6); Lymphocytes # 1.1 10^3/uL (0.8-4.8); Lymphocytes % 30.1 %; Mean Corpuscular Hemoglobin 30.2 pg (28.0-34.0); Mean Corpuscular Volume 97.4 fl (80-94); Mean Platelet Volume 9.7 fL (7.4-10.4); Monocytes # 0.6 10^3/uL (0.2-0.9); Monocytes % 14.6 %; Neutrophils # 1.67 10^3/uL (1.8-7.7); Neutrophils % 44.4 %; Nucleated Red Blood Cells % 0 %; Platelet Count 128 10^3/cmm (130-400); Red Blood Count 4.17 10^6/uL (4.1-5.3); Red Cell Distribution Width 13.8 % (12.1-15.1); White Blood Count 3.8 10^3/uL (4.0-10.0)
[2022-06-14 09:23] LABS: Alanine Aminotransferase 13 U/L (0-41); Albumin Level 3.9 g/dL (3.5-5.2); Alkaline Phosphatase 48 U/L (40-130); Anion Gap 10.1 (5-19); Aspartate Amino Transferase 16 U/L (0-40); Blood Urea Nitrogen 25 mg/dL (8-23); Calcium 9.9 mg/dL (8.5-10.5); Carbon Dioxide 34 mmol/L (22-29); Chloride 97 mmol/L (98-107); Glucose 143 mg/dL (65-115); Osmolality Calculated 291 mOsm/kg (285-295); Potassium 4.1 mmol/L (3.5-5.1); Sodium 137 mmol/L (136-145); Thyroid Stimulating Hormone 2.09 uIU/mL (0.27-4.20); Total Bilirubin 0.4 mg/dL (0.15-1.2); Total Protein 6.9 g/dL (6.6-8.7)
[2022-06-14] MEDS: nivolumab 240 MG in sodium chloride 0.9% 250 ML 548 MG IV (11:13)
[2022-06-14 11:49] VITALS: BP 120/64; PULSE 79; RESP 18; TEMP 36.3; O2SAT 92
== END 2022-06-21 23:59 | disposition home or self-care (01) ==
PROVIDERS: PCP Emergency Medicine Emergency Medical Services; Visit Provider Internal Medicine Medical Oncology
DX: Z51.12 Encounter for antineoplastic immunotherapy (principal); C67.4 Malignant neoplasm of posterior wall of bladder; Z79.899 Other long term (current) drug therapy; Z87.891 Personal history of nicotine dependence
CPT/HCPCS: 80053; 84443; 85025; 96413; 96415; 99214; J7050; J9299

== ENCOUNTER 2022-07-20 08:00 | Oncology outpatient (recurring) (ONCR) | payer OTHER, SELFPAY ==
[2022-06-28 10:41] VITALS: BP 158/80; PULSE 68; RESP 16; TEMP 36.6; O2SAT 92
[2022-06-28 11:07] LABS: Basophils % 0.8 %; Eosinophils # 0.3 10^3/uL (0.0-0.8); Eosinophils % 8.7 %; Hematocrit 41.4 % (42.0-52.0); Lymphocytes % 24.7 %; Mean Corpuscular HGB Conc 31.4 g/dL (30.0-36.0); Mean Corpuscular Hemoglobin 30.8 pg (28.0-34.0); Mean Corpuscular Volume 98.1 fl (80-94); Mean Platelet Volume 9.9 fL (7.4-10.4); Monocytes # 0.4 10^3/uL (0.2-0.9); Monocytes % 10.8 %; Neutrophils # 2.13 10^3/uL (1.8-7.7); Neutrophils % 54.7 %; Nucleated Red Blood Cells % 0 %; Platelet Count 138 10^3/cmm (130-400); Red Blood Count 4.22 10^6/uL (4.1-5.3); White Blood Count 3.9 10^3/uL (4.0-10.0)
[2022-06-28 11:43] LABS: Alanine Aminotransferase 15 U/L (0-41); Albumin Level 3.9 g/dL (3.5-5.2); Alkaline Phosphatase 58 U/L (40-130); Anion Gap 12.3 (5-19); Aspartate Amino Transferase 16 U/L (0-40); Blood Urea Nitrogen 19 mg/dL (8-23); Calcium 9.7 mg/dL (8.5-10.5); Carbon Dioxide 33 mmol/L (22-29); Chloride 101 mmol/L (98-107); Glucose 144 mg/dL (65-115); Osmolality Calculated 299 mOsm/kg (285-295); Potassium 4.3 mmol/L (3.5-5.1); Sodium 142 mmol/L (136-145); Thyroid Stimulating Hormone 1.25 uIU/mL (0.27-4.20); Total Bilirubin 0.3 mg/dL (0.15-1.2); Total Protein 6.9 g/dL (6.6-8.7)
[2022-06-28] MEDS: nivolumab 240 MG in sodium chloride 0.9% 250 ML 548 MG IV (12:50)
[2022-06-28 13:35] VITALS: BP 118/64; PULSE 61; RESP 16; TEMP 36.2; O2SAT 94
[2022-07-20 08:11] LABS: Basophils % 0.7 %; Eosinophils # 0.4 10^3/uL (0.0-0.8); Eosinophils % 7.3 %; Hematocrit 42.2 % (42.0-52.0); Hemoglobin 13.5 g/dL (11.7-16.6); Lymphocytes # 1.2 10^3/uL (0.8-4.8); Lymphocytes % 21.9 %; Mean Corpuscular Hemoglobin 30.4 pg (28.0-34.0); Mean Platelet Volume 9.9 fL (7.4-10.4); Monocytes # 0.6 10^3/uL (0.2-0.9); Monocytes % 10.5 %; Neutrophils # 3.18 10^3/uL (1.8-7.7); Neutrophils % 59.4 %; Nucleated Red Blood Cells % 0 %; Platelet Count 136 10^3/cmm (130-400); Red Blood Count 4.44 10^6/uL (4.1-5.3); White Blood Count 5.4 10^3/uL (4.0-10.0)
[2022-07-20 08:36] LABS: Alanine Aminotransferase 19 U/L (0-41); Albumin Level 4.2 g/dL (3.5-5.2); Alkaline Phosphatase 58 U/L (40-130); Aspartate Amino Transferase 24 U/L (0-40); Blood Urea Nitrogen 20 mg/dL (8-23); Calcium 9.9 mg/dL (8.5-10.5); Carbon Dioxide 34 mmol/L (22-29); Chloride 96 mmol/L (98-107); Globulin 2.9 g/dL (1.3-4.6); Glucose 139 mg/dL (65-115); Osmolality Calculated 289 mOsm/kg (285-295); Sodium 137 mmol/L (136-145); Thyroid Stimulating Hormone 2.27 uIU/mL (0.27-4.20); Total Bilirubin 0.4 mg/dL (0.15-1.2); Total Protein 7.1 g/dL (6.6-8.7)
[2022-07-20 08:44] LABS: Anion Gap 11.1 (5-19); Potassium 4.1 mmol/L (3.5-5.1)
[2022-07-20] MEDS: nivolumab 240 MG in sodium chloride 0.9% 250 ML 548 MG IV (10:50)
[2022-07-20 11:48] VITALS: BP 137/76; PULSE 63; RESP 16; TEMP 36.3; O2SAT 95
== END 2022-07-22 23:59 | disposition home or self-care (01) ==
PROVIDERS: PCP Emergency Medicine Emergency Medical Services; Visit Provider Internal Medicine Medical Oncology
DX: Z51.12 Encounter for antineoplastic immunotherapy (principal); C67.4 Malignant neoplasm of posterior wall of bladder; Z79.899 Other long term (current) drug therapy; Z79.52 Long term (current) use of systemic steroids; R09.81 Nasal congestion
CPT/HCPCS: 80053; 84443; 85025; 96413; 99214; J7050; J9299

== ENCOUNTER 2022-08-03 09:35 | Oncology outpatient (recurring) (ONCR) | payer OTHER, SELFPAY ==
[2022-08-03 09:55] VITALS: BP 139/75; PULSE 72; RESP 16; TEMP 36.7; O2SAT 95
[2022-08-03] MEDS: nivolumab 240 MG in sodium chloride 0.9% 250 ML 548 MG IV (10:51)
[2022-08-03 11:35] VITALS: BP 112/66; PULSE 64; RESP 16; TEMP 36.4; O2SAT 95
== END 2022-08-22 23:59 | disposition home or self-care (01) ==
PROVIDERS: PCP Emergency Medicine Emergency Medical Services; Visit Provider Internal Medicine Medical Oncology
DX: Z51.12 Encounter for antineoplastic immunotherapy (principal); C67.4 Malignant neoplasm of posterior wall of bladder; Z79.899 Other long term (current) drug therapy
CPT/HCPCS: 96413; J7050; J9299

== ENCOUNTER 2022-09-07 09:00 | Oncology outpatient (recurring) (ONCR) | payer OTHER, SELFPAY ==
[2022-08-24 11:17] LABS: Basophils % 0.8 %; Eosinophils # 0.4 10^3/uL (0.0-0.8); Eosinophils % 10.2 %; Hematocrit 39.7 % (42.0-52.0); Hemoglobin 12.1 g/dL (11.7-16.6); Lymphocytes # 0.7 10^3/uL (0.8-4.8); Lymphocytes % 18.9 %; Mean Corpuscular HGB Conc 30.5 g/dL (30.0-36.0); Mean Corpuscular Hemoglobin 30.2 pg (28.0-34.0); Mean Platelet Volume 10.3 fL (7.4-10.4); Monocytes # 0.4 10^3/uL (0.2-0.9); Monocytes % 10.7 %; Neutrophils # 2.05 10^3/uL (1.8-7.7); Nucleated Red Blood Cells # 0.1 /100WBC; Nucleated Red Blood Cells % 1.7 %; Platelet Count 96 10^3/cmm (130-400); Red Blood Count 4.01 10^6/uL (4.1-5.3); Red Cell Distribution Width 14.4 % (12.1-15.1); White Blood Count 3.5 10^3/uL (4.0-10.0)
[2022-08-24 11:47] LABS: Alanine Aminotransferase 14 U/L (0-41); Alkaline Phosphatase 57 U/L (40-130); Anion Gap 8.6 (5-19); Aspartate Amino Transferase 20 U/L (0-40); Blood Urea Nitrogen 22 mg/dL (8-23); Calcium 9.9 mg/dL (8.5-10.5); Carbon Dioxide 38 mmol/L (22-29); Chloride 99 mmol/L (98-107); Glucose 123 mg/dL (65-115); Osmolality Calculated 297 mOsm/kg (285-295); Potassium 4.6 mmol/L (3.5-5.1); Sodium 141 mmol/L (136-145); Thyroid Stimulating Hormone 1.91 uIU/mL (0.27-4.20); Total Bilirubin 0.3 mg/dL (0.15-1.2)
[2022-08-24] MEDS: nivolumab 240 MG in sodium chloride 0.9% 250 ML 548 MG IV (12:50)
[2022-08-24 13:55] VITALS: BP 124/78; PULSE 74; RESP 18; TEMP 36.6; O2SAT 98
--- NOTE | 2022-08-24 15:54 | PC.NURSE ---
Patient notifed of the follow up appointment with next labs and follow up.kp
[2022-09-07 09:54] LABS: Basophils % 0.9 %; Eosinophils # 0.4 10^3/uL (0.0-0.8); Eosinophils % 10.3 %; Hematocrit 35.7 % (42.0-52.0); Lymphocytes # 0.7 10^3/uL (0.8-4.8); Lymphocytes % 20.6 %; Mean Corpuscular HGB Conc 30.8 g/dL (30.0-36.0); Mean Corpuscular Hemoglobin 30.4 pg (28.0-34.0); Mean Corpuscular Volume 98.6 fl (80-94); Mean Platelet Volume 10.5 fL (7.4-10.4); Monocytes # 0.4 10^3/uL (0.2-0.9); Monocytes % 10.9 %; Neutrophils # 1.88 10^3/uL (1.8-7.7); Neutrophils % 53.6 %; Nucleated Red Blood Cells # 0.1 /100WBC; Platelet Count 75 10^3/cmm (130-400); Red Blood Count 3.62 10^6/uL (4.1-5.3); Red Cell Distribution Width 14.5 % (12.1-15.1); White Blood Count 3.5 10^3/uL (4.0-10.0)
[2022-09-07 10:06] VITALS: BMI 28.7
[2022-09-07 10:15] LABS: Alanine Aminotransferase 12 U/L (0-41); Albumin Level 3.9 g/dL (3.5-5.2); Alkaline Phosphatase 45 U/L (40-130); Anion Gap 9.3 (5-19); Aspartate Amino Transferase 18 U/L (0-40); Blood Urea Nitrogen 24 mg/dL (8-23); Calcium 9.4 mg/dL (8.5-10.5); Carbon Dioxide 36 mmol/L (22-29); Chloride 101 mmol/L (98-107); Globulin 2.3 g/dL (1.3-4.6); Glucose 119 mg/dL (65-115); Osmolality Calculated 299 mOsm/kg (285-295); Potassium 4.3 mmol/L (3.5-5.1); Sodium 142 mmol/L (136-145); Total Bilirubin 0.4 mg/dL (0.15-1.2); Total Protein 6.2 g/dL (6.6-8.7)
[2022-09-07] MEDS: nivolumab 240 MG in sodium chloride 0.9% 250 ML 548 MG IV (10:59)
[2022-09-07 12:00] VITALS: BP 131/69; PULSE 63; TEMP 36.5; O2SAT 99
== END 2022-09-19 23:59 | disposition home or self-care (01) ==
PROVIDERS: PCP Emergency Medicine Emergency Medical Services; Visit Provider Internal Medicine Medical Oncology
DX: Z51.12 Encounter for antineoplastic immunotherapy (principal); C67.4 Malignant neoplasm of posterior wall of bladder
CPT/HCPCS: 80053; 84443; 85025; 96413; 99214; J7050; J9299

== ENCOUNTER → 2022-09-18 09:39 | Outpatient (BNVA) | payer OTHER, SELFPAY | PROVIDERS: PCP Emergency Medicine Emergency Medical Services; Visit Provider Internal Medicine Pulmonary Disease | DX: R91.1 Solitary pulmonary nodule (principal); J43.2 Centrilobular emphysema; R09.02 Hypoxemia; I50.9 Heart failure, unspecified; R07.9 Chest pain, unspecified; Z87.891 Personal history of nicotine dependence; Z99.81 Dependence on supplemental oxygen; Z92.21 Personal history of antineoplastic chemotherapy; Z85.51 Personal history of malignant neoplasm of bladder; R60.0 Localized edema | CPT/HCPCS: 36415; 80048; 83735; 83880; 85007; 85025; 99214 ==

== ENCOUNTER 2022-09-27 15:05 | Oncology outpatient (recurring) (ONCR) | payer OTHER, SELFPAY ==
[2022-09-21 08:50] VITALS: BMI 28.4
[2022-09-21 09:17] LABS: Hematocrit 38.6 % (42.0-52.0); Hemoglobin 11.9 g/dL (11.7-16.6); Mean Corpuscular HGB Conc 30.8 g/dL (30.0-36.0); Mean Corpuscular Volume 100.5 fl (80-94); Mean Platelet Volume 11.6 fL (7.4-10.4); Platelet Count 66 10^3/cmm (130-400); Red Blood Count 3.84 10^6/uL (4.1-5.3); Red Cell Distribution Width 15.3 % (12.1-15.1); White Blood Count 4.1 10^3/uL (4.0-10.0)
[2022-09-21 09:52] LABS: Alanine Aminotransferase 17 U/L (0-41); Albumin Level 4.2 g/dL (3.5-5.2); Alkaline Phosphatase 53 U/L (40-130); Anion Gap 13.2 (5-19); Aspartate Amino Transferase 23 U/L (0-40); Blood Urea Nitrogen 28 mg/dL (8-23); Calcium 9.8 mg/dL (8.5-10.5); Carbon Dioxide 37 mmol/L (22-29); Chloride 94 mmol/L (98-107); Globulin 2.8 g/dL (1.3-4.6); Glucose 168 mg/dL (65-115); Osmolality Calculated 299 mOsm/kg (285-295); Potassium 4.2 mmol/L (3.5-5.1); Sodium 140 mmol/L (136-145); Total Bilirubin 0.5 mg/dL (0.15-1.2)
[2022-09-21 10:22] LABS: Slide Review Slide Review Perform
[2022-09-21 10:44] LABS: Absolute Eosinophils 0.1 10^3/cmm (0.0-0.7); Absolute Segmented Neutrophil 1.9 10/cmm (1.6-7.1); Eosinophils 4 %; Lymphocytes 16 %; Lymphocytes Absolute 0.7 10^3/cmm (1.2-3.4); Monocytes Absolute 0.1 10^3/cmm (0.1-0.6); Segmented Neutrophils 46 %; Total Cells Counted 100 (0-100)
[2022-09-21 10:45] LABS: Absolute Neutrophil 1.9 10^3/cmm (1.4-6.5); Blastocytes 6 % (0-0); Corrected White Blood Count 3.7 10^3/cmm (4.8-10.8); Platelet Estimate Decreased (Normal)
[2022-09-22 12:14] LABS: Leukemia Profile (BBPL) See Report; Lymphoma Profile (BBPL) See Report
== END 2022-10-20 23:59 | disposition home or self-care (01) ==
PROVIDERS: PCP Emergency Medicine Emergency Medical Services; Visit Provider Internal Medicine Medical Oncology
DX: C67.4 Malignant neoplasm of posterior wall of bladder; R53.0 Neoplastic (malignant) related fatigue; L27.0 Generalized skin eruption due to drugs and medicaments taken internally; T45.1X5A Adverse effect of antineoplastic and immunosuppressive drugs, initial encounter; D69.59 Other secondary thrombocytopenia; D75.89 Other specified diseases of blood and blood-forming organs; Z79.899 Other long term (current) drug therapy; Z87.891 Personal history of nicotine dependence
CPT/HCPCS: 80053; 84443; 85007; 85025; 88184; 88185; 99215

== ENCOUNTER 2022-10-11 11:39 | Outpatient (CLI) | payer OTHER, SELFPAY ==
--- NOTE | 2022-10-11 11:45 | USCV_ITS ---
Vishal Boswell Age: 77 Gender: M : 1945 Exam Date: 10/11/2022 12:21 Ordering Phys: Armando Galindo MD Technologist: Michael Lantigua Exam Location: [facility] [place] Indication: LV function BP: 136 / 75 HR: 68 Rhythm: Sinus Technical Quality: Adequate MEASUREMENTS (Male / Female) Normal Values 2D ECHO LV Diastolic Diameter PLAX 5.3 cm 4.2 - 5.9 / 3.9 - 5.3 cm LV Systolic Diameter PLAX 3.2 cm IVS Diastolic Thickness 1.1 cm 0.6 - 1.0 / 0.6 - 0.9 cm IVS Systolic Thickness 1.1 cm LVPW Diastolic Thickness 1.0 cm 0.6 - 1.0 / 0.6 - 0.9 cm LVPW Systolic Thickness 1.3 cm LVOT Diameter 2.2 cm LV Ejection Fraction 2D Teich 70.4 % LV Ejection Fraction MOD 2C 48.6 % LV Ejection Fraction 2C AL 52.7 % LA Diameter 3.2 cm LA Width 3.5 cm LA Height 4.4 cm RA Width 3.1 cm RA Height 4.6 cm Aorta at Sinotubular Diameter 3.0 cm IVC Diameter 2.0 cm M-MODE Aortic Annulus Diameter 3.3 cm LA Ao Ratio MM 1.1 DOPPLER AV Peak Velocity 203.7 cm/s LVOT Peak Velocity 118.0 cm/s AV Area Cont Eq vti 2.4 cm squared AV Area Cont Eq pk 2.2 cm squared MV Peak Velocity 117.0 cm/s MV Area PHT 3.1 cm squared Mitral E to A Ratio 0.7 MV E' Velocity 36.5 cm/s Mitral E to MV E' Ratio 6.3 Mitral E to LV E' Lateral Ratio 5.1 Mitral E to LV E' Septal Ratio 8.5 TR Peak Velocity 401.5 cm/s TR Peak Gradient 64.5 mmHg TR Mean Velocity 264.1 cm/s TR Mean Gradient 30.7 mmHg TR Velocity Time Integral 120.1 cm Right Atrial Pressure 3.0 mmHg Pulmonary Artery Systolic Pressu 67.5 mmHg PV Peak Velocity 87.0 cm/s RV Acceleration Time 0.1 s RV Ejection Time 0.3 s RV AcT/ET 0.4 FINDINGS Left Ventricle Normal LV size with borderline low ejection fraction of 50 to 55%. Mild diffuse hypokinesia of the inferior wall segment.Grade I/IV diastolic dysfunction (abnormal relaxation filling pattern), normal to mildly elevated filling pressures. Right Ventricle Mildly increased right ventricular size. Normal right ventricular systolic function. Right Atrium Mildly dilated right atrium and right ventricle. Left Atrium Normal left atrial size. Mitral Valve No gross abnormalities noted Aortic Valve Thickened aortic valve. Moderate aortic valve calcification. Tricuspid Valve Mild tricuspid valve regurgitation. Moderate pulmonary hypertension with an estimated pulmonary artery peak systolic pressure 68 mmHg and a mean pressure of 31 mmHg Pulmonic Valve Trace pulmonary valve regurgitation. Pericardium No pericardial effusion. Aorta Normal aortic annulus size. IVC Inferior vena cava not visualized. CONCLUSIONS Normal LV size with borderline low ejection fraction of 50 to 55%. Mild diffuse hypokinesia of the inferior wall segment.Grade I/IV diastolic dysfunction (abnormal relaxation filling pattern), normal to mildly elevated filling pressures. Mildly dilated right atrium and right ventricle Possibly normal right ventricular ejection fraction Mild tricuspid valve regurgitation. Moderate pulmonary hypertension with an estimated pulmonary artery peak systolic pressure 68 mmHg and a mean pressure of 31 mmHg. Trace pulmonary valve regurgitation. There is no pericardial effusion. Compared to the study from 01/04/2016, the pulmonary hypertension appears to be new so also the enlargement of the right-sided chambers Dr Jordan Yousif MD FAC (Electronically Signed) Final Date: 11 October 2022 17:23 S
--- NOTE | 2022-10-11 11:48 | XRR_ITS ---
PROCEDURE INFORMATION: Exam: XR Chest Exam date and time: 10/11/2022 12:51 PM Age: 77 years old Clinical indication: Condition or disease; Lung condition and disease; Pleural effusion; Other: Not specified; Additional info: Bilateral pleural effusion versus pneumonia TECHNIQUE: Imaging protocol: Radiologic exam of the chest. Views: 2 views. COMPARISON: CT chest abdpel w/*[id number] 09/30/2021 10:55 AM FINDINGS: Lungs: Faint ground-glass opacity right and left mid lung zone and indistinct nodular opacity left lower lung zone, new, possibly infectious in nature. Chronic left basilar subsegmental atelectasis, stable. Stable nodular densities secondary to old granulomatous disease, stable. Pleural spaces: Unremarkable. No pleural effusion. No pneumothorax. Heart/Mediastinum: Heart is borderline enlarged, unchanged. Bones/joints: Accentuated kyphotic curvature with mild degenerative changes lower thoracic spine, stable. XR/XR chest 2V* [id number] IMPRESSION: 1. Interval development of faint ground-glass opacities mid lung zones and possibly infectious in nature. 2. Indistinct nodular density left lower lung zone, new, nonspecific. Recommend follow-up nonemergent CT chest for further assessment. 3. Chronic left basilar subsegmental atelectasis.
== END 2022-10-11 11:40 | disposition home or self-care (01) ==
PROVIDERS: PCP Emergency Medicine Emergency Medical Services; Visit Provider Internal Medicine Pulmonary Disease
DX: R09.02 Hypoxemia (principal); I50.9 Heart failure, unspecified; I07.1 Rheumatic tricuspid insufficiency; I27.20 Pulmonary hypertension, unspecified; J98.11 Atelectasis
CPT/HCPCS: 36415; 71046; 80048; 83735; 83880; 85007; 85025; 93306

== ENCOUNTER 2022-10-30 06:00 | Oncology outpatient (recurring) (ONCR) | payer OTHER, SELFPAY ==
[2022-10-30 08:34] LABS: Hematocrit 29.1 % (42.0-52.0); Mean Corpuscular HGB Conc 30.9 g/dL (30.0-36.0); Mean Corpuscular Hemoglobin 30.7 pg (28.0-34.0); Mean Corpuscular Volume 99.3 fl (80-94); Red Blood Count 2.93 10^6/uL (4.1-5.3); Red Cell Distribution Width 16.6 % (12.1-15.1); White Blood Count 6.5 10^3/uL (4.0-10.0)
[2022-10-30 08:46] LABS: Alanine Aminotransferase 16 U/L (0-41); Albumin Level 3.8 g/dL (3.5-5.2); Alkaline Phosphatase 53 U/L (40-130); Anion Gap 11.8 (5-19); Aspartate Amino Transferase 21 U/L (0-40); Blood Urea Nitrogen 27 mg/dL (8-23); Calcium 9.3 mg/dL (8.5-10.5); Carbon Dioxide 36 mmol/L (22-29); Chloride 96 mmol/L (98-107); Globulin 2.8 g/dL (1.3-4.6); Glucose 139 mg/dL (65-115); Osmolality Calculated 297 mOsm/kg (285-295); Potassium 3.8 mmol/L (3.5-5.1); Sodium 140 mmol/L (136-145); Total Bilirubin 0.6 mg/dL (0.15-1.2); Total Protein 6.6 g/dL (6.6-8.7)
[2022-10-30 09:33] LABS: Platelet Count 20 10^3/cmm (130-400); Slide Review Slide Review Perform
[2022-10-30 09:44] LABS: Band Neutrophils Absolute 0.5 10^3/cmm (0.0-1.2); Corrected White Blood Count 5.8 10^3/cmm (4.8-10.8); Monocytes Absolute 0.1 10^3/cmm (0.1-0.6); Total Cells Counted 100 (0-100)
[2022-10-30 09:45] LABS: Absolute Eosinophils 0.3 10^3/cmm (0.0-0.7); Absolute Segmented Neutrophil 1.4 10/cmm (1.6-7.1); Eosinophils 5 %; Lymphocytes 49 %; Segmented Neutrophils 21 %
[2022-10-30 09:46] LABS: Lymphocytes Absolute 3.6 10^3/cmm (1.2-3.4)
[2022-10-30 09:47] LABS: Absolute Neutrophil 1.8 10^3/cmm (1.4-6.5); Anisocytosis 2+; Giant Platelets Trace; Macrocytosis 1+; Ovalocytes 1+; Platelet Estimate Decreased (Normal); Poikilocytosis 2+
== END 2022-11-19 23:59 | disposition home or self-care (01) ==
PROVIDERS: PCP Emergency Medicine Emergency Medical Services; Visit Provider Internal Medicine Medical Oncology
DX: C67.4 Malignant neoplasm of posterior wall of bladder (principal); R53.0 Neoplastic (malignant) related fatigue; D69.59 Other secondary thrombocytopenia; Z79.899 Other long term (current) drug therapy; Z87.891 Personal history of nicotine dependence; C79.51 Secondary malignant neoplasm of bone; C79.52 Secondary malignant neoplasm of bone marrow; R71.8 Other abnormality of red blood cells
CPT/HCPCS: 80053; 85007; 85025; 99214; 99215